=== PATIENT | female | born 1940 | race Caucasian/White ===

== ENCOUNTER 2017-05-24 20:25 | Observation (INO) | payer MEDICARE, MEDICAID ==
[2017-05-24 21:07] LABS: #Eosinphils 0.1 thou/uL (0.0-0.7); #Lymphocytes 1.4 thou/uL (1.20-3.40); #Monocytes 0.7 thou/uL (0.11-0.59); #Neutrophils 6.7 thou/uL (1.40-6.50); %Basophils 0.2 % (0.0-1.0); %Eosinophils 1.4 % (0.0-10.0); %Lymphocytes 15.4 % (21.0-51.0); %Monocytes 8.3 % (0.0-10.0); Mean Platelet Volume 8.2 fL (7.4-10.4); Red Blood Cell (RBC) Count 3.75 mill/uL (4.20-5.40); White Blood Cell (WBC) Count 8.9 thou/uL (4.8-10.8)
--- NOTE | 2017-05-24 21:14 | RAD ---
UPRIGHT PORTABLE CHEST ONE VIEW: 05/24/17 HISTORY: 76-year-old female with chest pain, primarily left sided when she moves. There is some deformity of the left anterior 7th rib which could represent a rib fracture, age indete rminate. There is no pneumothorax or pleural effusion. Atherosclerosis of the aorta. IMPRESSION: Minimal deformity of the left 7th anterior rib, evidence for a rib fracture, age indeterminate. No pn eumothorax, pleural effusion or other acute process in the chest. POS: [facility]
[2017-05-24 21:32] LABS: ALT (SGPT) 16 U/L (8-55); AST (SGOT) 29 U/L (5-34); Alkaline Phosphatase 158 U/L (40-150); Anion Gap 15 mmol/L (10-20); BUN (Urea Nitrogen) 22 mg/dL (9.8-20.1); Bilirubin, Total 0.2 mg/dL (0.2-1.2); Calc. Creatinine Clearance 0 mL/min (70-130); Calcium 8.7 mg/dL (7.8-10.44); Carbon Dioxide 20 mmol/L (23-31); Chloride 110 mmol/L (98-107); Estimated GFR-MDRD 28; Globulin 3.2 g/dL (2.4-3.5); Lipase 36 U/L (8-78); Magnesium 2.6 mg/dL (1.6-2.6); Protein, Total 6.8 g/dL (6.0-8.3)
[2017-05-24 21:33] LABS: Troponin I 0.026 ng/mL (< 0.028)
[2017-05-24 22:24] LABS: Bilirubin Negative (Negative); Blood, Urine Negative (Negative); Glucose, Urine (Dipstick) Negative (Negative); Ketone, Urine Negative (Negative); Nitrite Positive (Negative); Protein, Urine (Dipstick) Negative (Neg-Trace); Urobilinogen 0.2 mg/dL (0.2-1.0)
[2017-05-24 22:26] LABS: Bacteria/HPF 4+ HPF (None Seen); Hyaline Casts/LPF 0-3 HYALINE CAST LPF (0-3 Hyaline); RBC/HPF 0-3 HPF (0-3); Squamous Epithelial None Seen HPF (0-3)
[2017-05-24] MEDS ORDERED: Heparin 5,000 UNITS/ML VIAL ONE (23:45)
[2017-05-25 03:47] LABS: Troponin I 0.029 ng/mL (< 0.028)
[2017-05-25 04:51] VITALS: BMI 28.4
[2017-05-25 06:13] LABS: Troponin I 0.037 ng/mL (< 0.028)
[2017-05-25] MEDS ORDERED: Eucerin (Mineral Oil/Petrolatum,White) 30 gm Jar TOP PRN (06:51)
[2017-05-25] MEDS ORDERED: Ondansetron HCl/PF 4 MG/2 ML Vial IVP PRN (06:51)
[2017-05-25] MEDS ORDERED: Nitroglycerin 0.4 MG TAB (25 Tab Bottle) SL PRN (06:51)
[2017-05-25] MEDS ORDERED: Acetaminophen 325 MG TAB PO PRN (06:51)
[2017-05-25] MEDS ORDERED: Benzonatate 100 MG CAP PO PRN (06:51)
[2017-05-25] MEDS ORDERED: Senokot 8.6 MG TAB PO PRN (06:51)
[2017-05-25] MEDS ORDERED: Mag-Al 1200 mg/1200 mg/30 ML UDCUP PO PRN (06:51)
[2017-05-25] MEDS ORDERED: Loratadine 10 MG TAB PO PRN (06:51)
[2017-05-25] MEDS ORDERED: HYDROcodone/Acetaminophen 5/325 mg Tablet PO PRN (06:51)
[2017-05-25] MEDS ORDERED: Sodium Chloride 0.65% Nasal 44 ML BOT EA NARE PRN (06:51)
[2017-05-25] MEDS ORDERED: Ondansetron ODT 4 MG TAB PO PRN (06:51)
[2017-05-25] MEDS ORDERED: Milk Of Magnesia 30 ML UDCUP PO PRN (06:51)
[2017-05-25] MEDS ORDERED: Loperamide HCl 2 MG CAP PO PRN (06:51)
[2017-05-25] MEDS ORDERED: Zolpidem Tartrate 5 MG TAB PO PRN (06:51)
[2017-05-25] MEDS ORDERED: hydrALAZINE 20 MG/ML VIAL SLOW IVP PRN (06:51)
[2017-05-25] MEDS ORDERED: Chloraseptic Spray 180 ml Bottle PO PRN (06:51)
[2017-05-25] MEDS ORDERED: Diabetic Tussin 200 MG/10 ML UDCUP PO PRN (06:51)
[2017-05-25] MEDS ORDERED: Artificial Tears 18 DROP/0.9 ML EA EYE PRN (06:51)
[2017-05-25] MEDS ORDERED: Non-Formulary Item 1 EACH (Cran/Vitc/Mannose/Fos/Bromeln [Uti-Stat Liquid] 3,875 MG) PO SCH (09:00)
[2017-05-25] MEDS ORDERED: RIVASTIGMINE TD SCH (09:00)
[2017-05-25] MEDS: Amlodipine 5 MG TAB PO SCH (09:16)
[2017-05-25] MEDS: Saccharomyces boulardii 250 MG CAP PO SCH (09:17)
[2017-05-25] MEDS: Multivit, Therapeutic 1 TAB PO SCH (09:17)
[2017-05-25] MEDS: hydrALAZINE 25 MG TAB PO SCH ×3 (09:17→20:37)
[2017-05-25] MEDS: Folic Acid 1 MG TAB PO SCH (09:17)
[2017-05-25] MEDS: Bupropion 150 MG SR TAB PO SCH ×2 (09:17→20:37)
[2017-05-25] MEDS: Clopidogrel Bisulfate 75 MG TAB PO SCH (09:17)
[2017-05-25] MEDS: Aspirin 325 MG TAB PO SCH (09:17)
[2017-05-25] MEDS: Famotidine 20 MG TAB PO SCH (09:17)
[2017-05-25] MEDS: Amoxicillin/Potassium Clav 500 MG TAB PO SCH ×2 (09:20→20:37)
[2017-05-25] MEDS: Venlafaxine HCl XR 75 MG CAP PO SCH (09:20)
--- NOTE | 2017-05-25 10:44 | HP ---
PRIMARY CARE PHYSICIAN: Roman Branch D.O. REASON FOR ADMISSION: Chest pain. HISTORY OF PRESENT ILLNESS: A 76-year-old female who has history of mild coronary artery disease, pa roxysmal atrial fibrillation, hypertension, chronic kidney disease stage IV, aortic stenosis required balloon valvuloplasty in past, who lives at [facility]. From there, she was sent to the [facility] ency Room for chest pain. The patient reports that yesterday evening, there was republican at [facility]. She was there and she only ate some cookie and juice, but she was not feeling good and that i s why she came out of republican and went to her room. She was hurting in her left side of chest, which w as related with movement. She was hurting, especially whenever she was lifting her left upper extrem ity. She denies any associated nausea, vomiting, and diaphoresis. She denied any associated cough o r shortness of breath. She denied any relation of chest pain with food, respiration or activity. As patient's symptoms were not getting better and that is why patient called her son who brought her to emergency room for evaluation. In the emergency room, this patient's routine blood tests showed normal CBC, D-dimer was slightly aminta vated and that is why V/Q scan was ordered. Her BNP was slightly elevated. Her initial troponin was negative, but subsequently it was in indeterminant range. Her urinalysis is suggestive of UTI, but this patient does not have any UTI symptoms. This patient was evaluated in the emergency room and she was given Rocephin 1 gram, heparin 5000 unit s subcutaneous, and aspirin. This morning when I saw this patient, at that time she was not having a ny chest pain. She was on room air. She was not having any problem with her left upper extremity as well. PAST MEDICAL HISTORY: Chronic atrial fibrillation, Alzheimer's dementia, recurrent urinary tract inf ection, paroxysmal atrial fibrillation, history of aortic stenosis and required balloon aortic valvul otomy, osteoarthritis, history of TIA, and history of Parkinson's disease. PAST SURGICAL HISTORY: Knee replacement, tumor removed from spine, gastric bypass surgery, hysterect radha, cholecystectomy, cardiac catheterization with balloon aortic valvotomy. PAST PSYCHIATRIC HISTORY: Anxiety and depression. SOCIAL HISTORY: The patient lives at [facility]. No history of tobacco, alcohol or illicit dr ug abuse. FAMILY HISTORY: Mom by age of 82 years. Father when the patient was 1-year-old in road tr affic accident. One sister has a history of breast cancer. REVIEW OF SYSTEMS: The following complete review of systems was negative, unless otherwise mentioned in the HPI or below: Constitutional: Weight loss or gain, ability to conduct usual activities. Skin: Rash, itching. Eyes: Double vision, pain. ENT/Mouth: Nose bleeding, neck stiffness, pain, tenderness. Cardiovascular: Palpitations, dyspnea on exertion, orthopnea. Respiratory: Shortness of breath, wheezing, cough, hemoptysis, fever or night sweats. Gastrointestinal: Poor appetite, abdominal pain, heartburn, nausea, vomiting, constipation, or diarr hea. Genitourinary: Urgency, frequency, dysuria, nocturia. Musculoskeletal: Pain, swelling. Neurologic/Psychiatric: Anxiety, depression. Allergy/Immunologic: Skin rash, bleeding tendency. Please see my HPI for pertinent positives and negatives. All other review of systems reviewed and ne gative except as mentioned in the HPI. EMERGENCY ROOM COURSE: Patient is given Rocephin 1 gram, heparin 5000 units and aspirin 324 mg. ALLERGIES: No known drug allergies. CURRENT HOME MEDICATIONS: Amiodarone 200 mg p.o. daily, Exelon patch every day, folic acid 1 mg p.o. daily, multivitamin 1 tablet p.o. daily, Norvasc 5 mg p.o. daily, Pepcid 20 mg daily, Plavix 75 mg p .o. daily, Prilosec 20 mg p.o. daily, Remeron 7.5 mg at bedtime, trazodone 50 mg at bedtime, venlafax ine 75 mg daily, UTI-Stat 30 mL p.o. twice daily, Wellbutrin-SR 150 mg twice daily, and hydralazine 2 5 mg p.o. 3 times daily. PHYSICAL EXAMINATION: VITAL SIGNS: On arrival, blood pressure 166/77, pulse 83, respiratory rate 18, temperature 97.5, sat uration 94% on room air, and weight 77.1 kilograms. GENERAL: Patient is currently alert, oriented, no obvious acute distress. HEAD: Normocephalic, atraumatic. EYES: Pupils round, reactive to light. Extraocular muscles intact. ENT: Oropharynx within normal limits. Moist mucous membranes. No oral lesions. No pharyngeal eryt lia, no exudates. NECK: Supple, no JVD, no thyromegaly, no carotid bruit. LUNGS: Clear to auscultation without any rhonchi or rales. No accessory muscles of respiration in u se. No reproducible chest pain. CARDIAC: S1, S2 appears irregular. Systolic murmur present at aortic area. No gallop, no rub. ABDOMEN: Soft, bowel sounds present, nontender, and nondistended. No organomegaly, no mass, no supr apubic tenderness. BACK: Examination unremarkable, no CVA tenderness. EXTREMITIES: Upper extremity passive movements of all joints are normal. Lower extremities: No mikey ma. Good peripheral pulsation. No calf tenderness. SKIN: No skin rash. HEMATOLOGICAL SYSTEM: No lymphadenopathy. PSYCHIATRIC: Normal affect. NEUROLOGIC: Neurologically, nonfocal examination. IMAGING DATA AND SIGNIFICANT LABORATORY DATA: 1. EKG based on my review reveals normal sinus rhythm, first degree AV block, left ventricular hyper trophy. 2. Chest x-ray based on my review, minimal deformity of the left seventh anterior rib, evidence for rib fracture is indeterminant. 3. CBC: WBC 8.9, hemoglobin 11.6, platelets 363, D-dimer 0.74, sodium 140, potassium 4.8, chloride 110, carbon dioxide 20, BUN 22, creatinine 1.77, glucose 126, calcium 8.7, magnesium 2.6. 4. LFT: AST 29, ALT 7, AST 16, alkaline phosphatase 158, albumin 3.6, lipase 36, CK-MB 2.0, troponi n I 0.026. BNP 113.4. Subsequent troponin 0.029 and then 0.037. 5. Urinalysis suggestive of urinary tract infection. ASSESSMENT AND PLAN/IMPRESSION: 1. Chest pain, left sided, relation with movement of the left upper extremity. I am suspecting musc uloskeletal pain. This patient also has a left and 7th anterior rib fracture. Probably her pain may be related with that, but given her indeterminate troponin, we need to exclude cardiac etiology. Th is patient already had negative cardiac catheterization in 2016. Her D-dimer is slightly elevated, t kerri patient does not have any lower extremity edema or any calf tenderness. We will do V/Q scan to rule out thromboembolic disorder. Meanwhile, we will continue with aspirin 325 mg p.o. daily and Pl avix 75 mg p.o. daily. We will check a lipid profile tomorrow morning and we will also obtain echoca rdiography to assess ejection fraction and other structural abnormality. 2. Urinary tract infection. Patient is given Rocephin in the emergency room. Based on previous cul ture and sensitivity result, I will start Augmentin 500 mg twice daily based on renal dose and will f ollow up on urine culture result. We will also give her probiotics, Florastor 250 mg p.o. daily. 3. Elevated troponin as mentioned in problem #1. We are going to obtain echocardiography. We will continue aspirin and Plavix and we are also going to rule out thromboembolic disorder. 4. Elevated D-dimer. We will also rule out thromboembolic disorder with a V/Q scan. 5. Mild coronary artery disease. Patient is currently on full optimum medical therapy with aspirin, Plavix, and nitroglycerin on p.r.n. basis. We will check lipid profile and start statin therapy. 6. History of aortic stenosis, required balloon valvulotomy. Currently problem is stable. We are g oing to obtain echocardiography to assess current status. 7. Hypertension. We will continue amlodipine 5 mg p.o. daily, hydralazine 25 mg p.o. t.i.d. and nit ro patch 0.5 inch q.8 hourly. 8. Alzheimer's dementia. We will continue Exelon patch every day. 9. Anxiety and depression. We will continue Remeron 7.5 mg p.o. at bedtime, venlafaxine 225 mg p.o. daily along with Wellbutrin-SR 150 mg twice daily. 10. Chronic kidney disease stage 4. We will monitor renal function and avoid nephrotoxin agent. Me dication will be given as per renal dose. 11. Paroxysmal atrial fibrillation. We will continue amiodarone 200 mg p.o. daily along with aspiri n and Plavix for stroke prophylaxis. 12. Deep venous thrombosis prophylaxis not needed because we are expecting discharge in 24 hours. 13. Gastrointestinal prophylaxis, Pepcid 20 mg p.o. daily. CODE STATUS: The patient is FULL CODE. Patient's son is surrogate decision maker. Disposition plan within 24 hours, likely tomorrow morning after ruling out cardiac etiology.
[2017-05-25] MEDS: Nitroglycerin 2% Ointment 1 INCH/1 GM Packet TOP SCH ×2 (15:20→21:27)
--- NOTE | 2017-05-25 15:37 | NM ---
LUNG PERFUSION SCAN: 05/25/17 HISTORY: Chest pain. Elevated D-dimer. DOSE: 5 millicuries technetium 99m MAA. Multiple images including anterior, posterior and lateral as well as oblique images obtained after i njection of MAA for evaluation of lung perfusion scan. No evidence of areas of perfusion abnormality seen to suggest pulmonary emboli. IMPRESSION: Low probability scan for pulmonary emboli. No evidence of lung perfusion abnormality seen. POS: [facility]
[2017-05-25] MEDS ORDERED: traZODone HCl 50 MG TAB PO SCH (21:00)
[2017-05-25] MEDS ORDERED: Mirtazapine 15 MG TAB PO SCH (21:00)
[2017-05-26 04:38] LABS: #Eosinphils 0.2 thou/uL (0.0-0.7); #Lymphocytes 1.6 thou/uL (1.20-3.40); #Monocytes 0.7 thou/uL (0.11-0.59); #Neutrophils 4.5 thou/uL (1.40-6.50); %Basophils 0.6 % (0.0-1.0); %Eosinophils 3.3 % (0.0-10.0); %Monocytes 9.8 % (0.0-10.0); Hematocrit 36.9 % (36.0-47.0); Mean Platelet Volume 8.3 fL (7.4-10.4); Red Blood Cell (RBC) Count 3.75 mill/uL (4.20-5.40); White Blood Cell (WBC) Count 7.1 thou/uL (4.8-10.8)
[2017-05-26 05:18] LABS: Anion Gap 10 mmol/L (10-20); BUN (Urea Nitrogen) 22 mg/dL (9.8-20.1); Calc. Creatinine Clearance 36 mL/min (70-130); Carbon Dioxide 26 mmol/L (23-31); Chloride 111 mmol/L (98-107); Cholesterol 160 mg/dl (< 200 Desired); Estimated GFR-MDRD 30; LDL Cholesterol, Calculated 68 mg/dL
[2017-05-26] MEDS: Nitroglycerin 2% Ointment 1 INCH/1 GM Packet TOP SCH (06:04)
[2017-05-26] MEDS: Amlodipine 5 MG TAB PO SCH ×2 (10:20→11:44)
[2017-05-26] MEDS: Aspirin 325 MG TAB PO SCH ×2 (10:20→11:44)
[2017-05-26] MEDS: Amoxicillin/Potassium Clav 500 MG TAB PO SCH ×2 (10:20→11:44)
[2017-05-26] MEDS: Saccharomyces boulardii 250 MG CAP PO SCH ×2 (10:21→11:44)
[2017-05-26] MEDS: Bupropion 150 MG SR TAB PO SCH ×2 (10:21→11:45)
[2017-05-26] MEDS: hydrALAZINE 25 MG TAB PO SCH ×2 (10:21→11:44)
[2017-05-26] MEDS: Clopidogrel Bisulfate 75 MG TAB PO SCH ×2 (10:21→11:45)
[2017-05-26] MEDS: Multivit, Therapeutic 1 TAB PO SCH ×2 (10:21→11:45)
[2017-05-26] MEDS: Venlafaxine HCl XR 75 MG CAP PO SCH ×2 (10:21→11:44)
[2017-05-26] MEDS: Folic Acid 1 MG TAB PO SCH ×2 (10:21→11:45)
[2017-05-26] MEDS: Famotidine 20 MG TAB PO SCH ×2 (10:21→11:45)
--- NOTE | 2017-05-26 11:00 | DIS ---
PRIMARY CARE PHYSICIAN: Dr. Roman Branch. DATE OF ADMISSION: 05/24/2017 DATE OF DISCHARGE: 05/26/2017 DISCHARGE DISPOSITION: [facility]. PRIMARY DISCHARGE DIAGNOSES: 1. Left sided chest pain, likely musculoskeletal, ruled out acute coronary syndrome. 2. Urinary tract infection. 3. Elevated troponin, ruled out thromboembolic disorder. 4. Elevated D-dimer, ruled out thromboembolic disorder with VQ scan. 5. Moderate aortic stenosis. SECONDARY DISCHARGE DIAGNOSES: Paroxysmal atrial fibrillation, chronic kidney disease stage 4, anxie ty and depression, Alzheimer's dementia, hypertension, moderate aortic stenosis, mild coronary artery disease, recurrent UTI, and physical deconditioning. PRIMARY PROCEDURE/OPERATION: None. RADIOLOGICAL INVESTIGATION: Chest x-ray normal, which showed old seventh anterior rib fracture. Ech ocardiography showed moderate aortic stenosis. Ventilation perfusion scan negative for any PE. SIGNIFICANT LABORATORY DATA: WBC 7.1, hemoglobin 11.4, platelets 316. D-dimer 0.74. Sodium 143, cr eatinine 1.66, BUN 22, calcium 9.0, troponin 0.037, LDL 68, triglyceride 141, cholesterol 160, HDL 64 . Urinalysis suggestive of UTI. Urine culture grew E. coli. DISCHARGE MEDICATIONS: The patient will continue all her previous medications. New medication is Au gmentin 500 mg twice daily for 5 days and Florastor 250 mg p.o. daily for 5 days. Continue following medications: Amiodarone 200 mg p.o. daily, amlodipine 5 mg p.o. daily, Wellbutrin SR 150 mg p.o. b. i.d., Plavix 75 mg p.o. daily, UTI-Stat liquid b.i.d., Pepcid 20 mg p.o. daily, folic acid 1 mg p.o. daily, hydralazine 25 mg p.o. t.i.d., Remeron 7.5 mg p.o. at bedtime, multivitamin 1 tablet p.o. moon y, omeprazole 20 mg p.o. daily, Exelon patch transdermal daily, trazodone 50 mg p.o. at bedtime, and venlafaxine 225 mg p.o. daily. CONTRAINDICATIONS: None. CODE STATUS: FULL CODE. INPATIENT CONSULTANTS: None. ALLERGIES: No known drug allergy. DISCHARGE PLAN: Post hospital, the patient will follow up with primary care physician at [facility]. HOSPITAL COURSE: A 76-year-old female with the above-mentioned medical problem, who was sent from as sisted living facility for chest pain. The patient was having chest pain, which was musculoskeletal that was related with movement of the left upper extremity. In the emergency room, she had a negativ e EKG. Her D-dimer was elevated and that is why we did VQ scan and ruled out thromboembolic disorder . She had a slightly elevated troponin, which was indeterminant range, which was related with demand ischemia. She has moderate aortic stenosis. This patient has a urinary tract infection and that is why we started Augmentin for 5 more days and t he patient remained asymptomatic while in hospital. She did not have any further chest pain. Her te lemetry remained unremarkable. PHYSICAL EXAMINATION: The patient is seen and examined at bedside today. VITAL SIGNS: Currently, temperature 97.5, pulse 91, respiratory rate 16, saturation 96%, blood press ure 149/68, and weight 173 pounds. GENERAL: The patient is alert, oriented, in no acute distress. HEAD: Normocephalic, atraumatic. LUNGS: Clear to auscultation without any rhonchi or rales. CARDIAC: S1 and S2 appear regular. Murmur elicited at aortic area. No gallop, no rub. ABDOMEN: Soft. Bowel sounds present. EXTREMITIES: No edema. NEUROLOGIC: Nonfocal examination. Review of systems negative. New medication prescriptions sent to her pharmacy. The patient is medic ally stable for discharge today.
[2017-05-26 11:55] VITALS: BP 133/87; TEMP 97.4
== END 2017-05-26 14:34 ==
LOC: ERS 20:25 → 2SW 23:27
PROVIDERS: ADMIT Internal Medicine; ATTEND Internal Medicine
DX: R07.89 Other chest pain (principal); N39.0 Urinary tract infection, site not specified; R79.89 Other specified abnormal findings of blood chemistry; M19.90 Unspecified osteoarthritis, unspecified site; I35.0 Nonrheumatic aortic (valve) stenosis; I48.0 Paroxysmal atrial fibrillation; R53.81 Other malaise; I25.10 Atherosclerotic heart disease of native coronary artery without angina pectoris; I12.9 Hypertensive chronic kidney disease with stage 1 through stage 4 chronic kidney disease, or unspecified chronic kidney disease; N18.4 Chronic kidney disease, stage 4 (severe); G30.9 Alzheimer's disease, unspecified; F02.80 Dementia in other diseases classified elsewhere, unspecified severity, without behavioral disturbance, psychotic disturbance, mood disturbance, and anxiety; F41.9 Anxiety disorder, unspecified; F32.9 Major depressive disorder, single episode, unspecified; Z79.899 Other long term (current) drug therapy; Z98.84 Bariatric surgery status; Z90.49 Acquired absence of other specified parts of digestive tract; Z90.710 Acquired absence of both cervix and uterus; Z96.659 Presence of unspecified artificial knee joint; Z98.890 Other specified postprocedural states; Z86.73 Personal history of transient ischemic attack (TIA), and cerebral infarction without residual deficits
CPT/HCPCS: 71010; 78582; 80048; 80053; 80061; 82553; 83690; 83735; 83880; 84484 ×3; 85025 ×2; 85379; 87077; 87086; 87186; 93005; 93306; 96372; 96374; 99285; A9540; A9558; G0378; 36415; 81003; 81015; J0696; J1644

== ENCOUNTER 2017-06-14 19:50 | Emergency (ER) | payer MEDICARE, MEDICAID ==
[2017-06-14] MEDS ORDERED: Lidocaine 1% w/Epinephrine 1:100K 20 ML VIAL ONE (19:59)
[2017-06-14] MEDS ORDERED: Morphine 2 MG/ML SYRINGE ONE (20:20)
[2017-06-14] MEDS ORDERED: Bacitracin Zinc 1 Packet ONE (20:32)
--- NOTE | 2017-06-14 20:58 | CT ---
CT HEAD NONCONTRAST 06/14/17 INDICATION: Fall with head injury. Reference made to 08/03/16. FINDINGS: Moderate chronic microvascular ischemic disease is present without intracranial hemorrhage, mass effe ct or midline shift. Mild compensatory dilatation of ventricular system. There is a prominent sized l eft frontal scalp, and left periorbital hematoma. IMPRESSION: No acute intracranial abnormality. Prominent sized left frontal scalp and left periorbital soft tissue hematoma. Facial bones are incomp letely assessed. If there is concern in this regard, consider dedicated face CT. POS: [facility]
== END 2017-06-14 22:07 ==
LOC: ERS 19:50
DX: S01.112A Laceration without foreign body of left eyelid and periocular area, initial encounter (principal); S00.33XA Contusion of nose, initial encounter; I48.91 Unspecified atrial fibrillation; I10 Essential (primary) hypertension; M19.90 Unspecified osteoarthritis, unspecified site; F32.9 Major depressive disorder, single episode, unspecified; G20 Parkinson's disease; F02.80 Dementia in other diseases classified elsewhere, unspecified severity, without behavioral disturbance, psychotic disturbance, mood disturbance, and anxiety; Z86.73 Personal history of transient ischemic attack (TIA), and cerebral infarction without residual deficits; W01.10XA Fall on same level from slipping, tripping and stumbling with subsequent striking against unspecified object, initial encounter
CPT/HCPCS: 12013; 70450; 96372; J2001; J2270

== ENCOUNTER 2018-01-26 18:22 | Inpatient (IN) | payer MEDICARE, MEDICAID ==
[2018-01-26] MEDS ORDERED: Morphine 4 MG/ML VIAL ONE (19:32)
--- NOTE | 2018-01-26 20:47 | RAD ---
RIGHT KNEE: HISTORY: Fall with injury to right knee. FINDINGS: The patient has a right knee prosthesis in place. There is a transverse fracture involving the dista l femur, just above the condyles. There is ventral angulation of the distal fragment. Mild displace ment. IMPRESSION: Transverse fracture, distal femur, just above the femoral condyles, with angulation and mild displace ment of the distal fragment. POS: [facility]
--- NOTE | 2018-01-26 21:03 | RAD ---
PORTABLE CHEST: HISTORY: Injury to right lower extremity. Fall. COMPARISON: 05/24/2017 FINDINGS: There is a focal area of subtle density in the left apical region, which appears new from prior study . This could represent infiltrate. An underlying mass lesion is not excluded. The lung mccarty are otherwise clear. The heart and mediastinum are unremarkable. IMPRESSION: Questionable new opacity in the left upper lung field. Findings could represent inflammatory infiltr ate. Recommend followup. CODE T POS: [facility]
--- NOTE | 2018-01-26 21:04 | RAD ---
RIGHT FEMUR TWO VIEWS: HISTORY: Fall with injury to right lower extremity. FINDINGS: There is a transverse displaced and angulated fracture involving the distal femur, just above the con dyles. A knee prosthesis is in place, and the prosthetic components remain in alignment. The distal fragment shows ventral displacement and angulation. Mid and proximal femur are unremarkable with mild degenerative change at the hip. IMPRESSION: Transverse displaced and angulated fracture, distal right femur. POS: [facility]
[2018-01-26 21:23] LABS: #Eosinphils 0.1 thou/uL (0.0-0.7); #Monocytes 0.9 thou/uL (0.11-0.59); #Neutrophils 14.7 thou/uL (1.40-6.50); %Basophils 0.2 % (0.0-1.0); %Eosinophils 0.5 % (0.0-10.0); %Lymphocytes 5.9 % (21.0-51.0); %Monocytes 5.2 % (0.0-10.0); %Neutrophils 88.4 % (42.0-75.0); Hemoglobin 12.8 g/dL (12.0-16.0); Mean Corpuscular HGB CONC 32.7 g/dL (32.0-36.0); Mean Corpuscular Hemoglobin 31.5 pg (27.0-31.0); Mean Corpuscular Volume 96.6 fL (78.0-98.0); Mean Platelet Volume 9.5 fL (7.4-10.4); Platelet Count 235 thou/uL (130-400); RBC Distribution Width 12.3 % (11.5-14.5); Red Blood Cell (RBC) Count 4.05 mill/uL (4.20-5.40); White Blood Cell (WBC) Count 16.7 thou/uL (4.8-10.8)
[2018-01-26] MEDS ORDERED: Labetalol HCl 100 MG/20 ML VIAL ONE (21:23)
[2018-01-26 21:25] LABS: INR-International Normal Ratio 1.1; PTT 26.5 SEC (22.9-36.1); Prothrombin Time 14.7 SEC (12.0-14.7)
[2018-01-26 21:33] LABS: ALT (SGPT) 23 U/L (8-55); AST (SGOT) 31 U/L (5-34); Albumin 3.6 g/dL (3.4-4.8); Alkaline Phosphatase 168 U/L (40-150); Anion Gap 14 mmol/L (10-20); BUN (Urea Nitrogen) 25 mg/dL (9.8-20.1); Bilirubin, Total 0.4 mg/dL (0.2-1.2); Calc. Creatinine Clearance 0 mL/min (70-130); Calcium 8.8 mg/dL (7.8-10.44); Carbon Dioxide 20 mmol/L (23-31); Chloride 109 mmol/L (98-107); Estimated GFR-MDRD 33; Globulin 3.1 g/dL (2.4-3.5); Glucose 126 mg/dL (83-110); Potassium 5.1 mmol/L (3.5-5.1); Protein, Total 6.7 g/dL (6.0-8.3); Sodium 138 mmol/L (136-145)
--- NOTE | 2018-01-26 23:17 | HP ---
DATE OF ADMISSION: 01/26/2018 REQUESTING PHYSICIAN: Musa Santamaria D.O. ATTENDING SURGEON: Jeremie Landaverde M.D. CONSULTATIONS: Orthopedics, Dr. Gee. HISTORY OF PRESENT ILLNESS: The patient is a 77-year-old woman who lives at [facility] who was receiving walking back to her bed when she lost her balance, slipped and fell landing on her righ t knee, she had immediate pain, was unable to ambulate, staff notified EMS. She was brought to the e mergency department and noted to have a right distal femur periprosthetic fracture. At which time, w e were asked to evaluate the patient for admission and obtain orthopedic consultation. The patient d enied any syncopal like events. Denies hitting her head or loss of consciousness. Her only complain t is right knee pain. ALLERGIES: None. CURRENT MEDICATIONS: Keflex, Pepcid, desvenlafaxine, Wellbutrin, Tylenol, Plavix, and Zofran. PAST MEDICAL HISTORY: Coronary artery disease, atrial fibrillation, hypertension, osteoarthritis, de mentia, Parkinson's disease, TIA, depression. PAST SURGICAL HISTORY: Gastric bypass surgery, hysterectomy, cholecystectomy, spine surgery to "lucille ve a tumor" and right knee replacement. SOCIAL HISTORY: The patient denies tobacco, alcohol, or drug use and again she currently resides at [facility]. FAMILY HISTORY: Coronary artery disease, hypertension. REVIEW OF SYSTEMS: A 10-point review of systems is negative as otherwise stated. PHYSICAL EXAMINATION: VITAL SIGNS: Blood pressure 167/76, heart rate 66, respirations 16, oxygen saturation 95% on room ai r, temperature is 98.7. GENERAL: The patient is resting comfortably in bed. She is awake, alert, and conversant. Sammy c orlando scale is 15. The patient's dementia appears to be mostly memory related because she definitely a ppears oriented to most events currently and responds appropriately. HEENT: Head is normocephalic, atraumatic. Eyes: Extraocular motion intact. PERRLA bilaterally. E ars are atraumatic without discharge. Nose is atraumatic without discharge. Oropharynx is clear. NECK: Nontender. Trachea is midline. No JVD. CHEST: Clear to auscultation with good inspiratory and expiratory effort. HEART: Regular rate and rhythm. ABDOMEN: Soft, flat, nontender with active bowel sounds. Pelvis is stable. EXTREMITIES: The right lower extremity shows marked tenderness and swelling to her knee area consist ent with her fracture. Distally, she is neurovascularly intact. Remainder of her extremities are al so neurovascularly intact. BACK: By history is nontender and atraumatic. LABORATORY FINDINGS: White blood cell count 16.7, hemoglobin 12.8, hematocrit 39.1, platelets 235. Sodium 138, potassium 5.1, chloride 109, CO2 of 20, BUN 25, creatinine 1.52, glucose 126, AST 31, ALT 23, alkaline phosphatase 168, total bilirubin 0.4, PT 15, INR 1.1, PTT 27. RADIOGRAPHIC REPORTS: AP chest shows a questionable new opacity in the left upper lung field finding s could represent inflammatory infiltrate. Four views of the right knee show a transverse fracture o f the distal femur just above the femoral condyles with angulation and mild displacement of the dista l fragment. Two views of the femur show the same distal right femur fracture above the prosthesis. ASSESSMENT: 1. Status post ground level fall. 2. Right distal femur fracture. 3. History of coronary artery disease. 4. History of hypertension. 5. History of Parkinson's. 6. History of Alzheimer's. 7. History of Plavix use. PLAN: Plan will be to admit the patient to the surgical floor. She will be made n.p.o. after midnig ht. She will have pain control, pulmonary toilet, gastritis, and mechanical VTE prophylaxis. The trini lazaro was evaluated by Dr. Gee in the emergency department and this case will be discussed with Helen Landaverde after this dictation. The plan currently is to take the patient to the operating room [facility].
[2018-01-27] MEDS ORDERED: Ondansetron ODT 4 MG TAB PO PRN (00:03)
[2018-01-27] MEDS ORDERED: Ondansetron HCl/PF 4 MG/2 ML Vial IVP PRN (00:03)
[2018-01-27] MEDS ORDERED: Dextrose 50% Abboject 50 ML SYRINGE SLOW IVP PRN (00:03)
[2018-01-27] MEDS ORDERED: Morphine 4 MG/ML VIAL SLOW IVP PRN (00:03)
[2018-01-27] MEDS ORDERED: Dextrose 5% in Water 1,000 ML IV PRN (00:03)
[2018-01-27] MEDS ORDERED: hydrALAZINE 20 MG/ML VIAL SLOW IVP PRN (00:03)
--- NOTE | 2018-01-27 00:03 | CON ---
DATE OF CONSULTATION: 01/26/2018 CHIEF COMPLAINT: Right knee pain. HISTORY OF PRESENT ILLNESS: Ms. Barroso is a 77-year-old female status post fall. The patient currently lives at [facility], has history of dementia. The patient is a household ambulator. She ambulates fine in room and does transfers , but is otherwise no walking long distances. The patient complains of 9-10 pain. The patient's son is at bedside. She has a right pain. She has recently been treated for UTI. PAST MEDICAL HISTORY: Includes coronary artery disease, aortic stenosis with history of valvotomy, hypertension, Alzheimer dementia, anxiety, depression, chronic kidney disease, paroxysmal atrial fibrillation, history of TIA. PAST SURGICAL HISTORY: Right total knee arthroplasty, tumor excision removed, gastric bypass, hysterectomy, cholecystectomy, and a cardiac catheterization, balloon aortic valvotomy. ALLERGIES: No known drug allergies. CURRENT MEDICATIONS: The patient's medication list includes Keflex, Pepcid, desvenlafaxine, Wellbutrin, Tylenol, Plavix, and Zofran. SOCIAL HISTORY: Nondrinker, nonsmoker. No tobacco. The patient's son is at bedside. She currently lives in [facility]. REVIEW OF SYSTEMS: Noncontributory. PHYSICAL EXAMINATION: VITAL SIGNS: Blood pressure 200/81, pulse 80, respiratory rate 18, pain 10/10, 96% on room air. GENERAL: Alert female resting in bed talking without complaints. Her son at the bedside. EXTREMITIES: Right lower extremity exam shows pain with internal external rotation flexed deformity, no open wounds. Anterior midline knee incision from a total knee, 2+ DP and PT pulses. The patient will flex and extend her toes. She has sensation grossly intact right lower extremity. LABORATORY AND X-RAY FINDINGS: X-rays of the right femur and right knee show a supracondylar periprosthetic distal femur fracture around what appears to be a Lora Triathlon total knee. IMPRESSION: 1. Right supracondylar periprosthetic femur fracture. 2. Alzheimer's dementia. 3. Household ambulator. 4. Paroxysmal atrial fibrillation, coronary artery disease, hypertension, transient ischemic attack. ASSESSMENT AND PLAN: The patient has a periprosthetic femur fracture, admitted by Trauma. The patient's repeat UA to look for possible UTI. The patient will await clearance in the morning. Plan for on-call to the OR. I discussed with the family the risks and benefits of surgery to include pain, scar, bleeding, infection, damage to vital structures, decreased range of motion or strength, blood clots, loss of life or limb. She understands the patient to continue to ambulate the need to stabilize the femur. Discussed with him and I would either perform a nail versus plate may have to further investigate the starting point of the nail under fluoroscopy versus placement of the plate will better assess tomorrow possibly in the OR. Discussed with the patient risks and benefits of operative fixation. They elect to proceed. The patient received preoperative antibiotics medical secretary receptionist. MANUEL
[2018-01-27] MEDS ORDERED: Ketorolac Tromethamine 30 MG/ML VIAL IVP SCH (00:15)
[2018-01-27] MEDS ORDERED: Acetaminophen 1,000 MG in Premix Bag 1 BAG IVPB SCH (00:15)
[2018-01-27] MEDS: Sodium Chloride 0.9% 1,000 ML IV SCH ×3 (00:44→21:45)
[2018-01-27 00:58] LABS: Hemoglobin 12.2 g/dL (12.0-16.0)
[2018-01-27 01:22] LABS: ALT (SGPT) 31 U/L (8-55); AST (SGOT) 39 U/L (5-34); Albumin 3.6 g/dL (3.4-4.8); Alkaline Phosphatase 170 U/L (40-150); Anion Gap 13 mmol/L (10-20); BUN (Urea Nitrogen) 27 mg/dL (9.8-20.1); Bilirubin, Total 0.4 mg/dL (0.2-1.2); Calc. Creatinine Clearance 0 mL/min (70-130); Carbon Dioxide 20 mmol/L (23-31); Chloride 109 mmol/L (98-107); Estimated GFR-MDRD 34; Globulin 2.6 g/dL (2.4-3.5); Glucose 180 mg/dL (83-110); Potassium 4.2 mmol/L (3.5-5.1); Protein, Total 6.2 g/dL (6.0-8.3); Sodium 138 mmol/L (136-145)
[2018-01-27 02:06] VITALS: BMI 26.5
[2018-01-27 05:50] LABS: #Lymphocytes 0.7 thou/uL (1.20-3.40); #Monocytes 0.9 thou/uL (0.11-0.59); #Neutrophils 6.2 thou/uL (1.40-6.50); %Basophils 0.2 % (0.0-1.0); %Eosinophils 0.2 % (0.0-10.0); %Lymphocytes 9.3 % (21.0-51.0); %Monocytes 11.2 % (0.0-10.0); %Neutrophils 79.2 % (42.0-75.0); Hemoglobin 11.9 g/dL (12.0-16.0); Mean Corpuscular HGB CONC 32.1 g/dL (32.0-36.0); Mean Corpuscular Hemoglobin 31.1 pg (27.0-31.0); Mean Corpuscular Volume 97.1 fL (78.0-98.0); Mean Platelet Volume 9.3 fL (7.4-10.4); Platelet Count 205 thou/uL (130-400); RBC Distribution Width 12.2 % (11.5-14.5); Red Blood Cell (RBC) Count 3.83 mill/uL (4.20-5.40); White Blood Cell (WBC) Count 7.8 thou/uL (4.8-10.8)
[2018-01-27] MEDS: Acetaminophen 1,000 MG in Premix Bag 1 BAG IVPB SCH ×3 (06:36→18:11)
[2018-01-27] MEDS: Cyclobenzaprine 10 MG TAB PO PRN (07:47)
[2018-01-27] MEDS ORDERED: CEFAZOLIN/Water 2 GM/20 ML SYRINGE SLOW IVP SCH (08:00)
--- NOTE | 2018-01-27 08:50 | CON ---
DATE OF CONSULTATION: 01/27/2018 REASON FOR CONSULTATION: Preoperative clearance and history of aortic stenosis, status post valvulop lasty. HISTORY OF PRESENT ILLNESS: Ms. Barroso is a very pleasant 77-year-old woman, who initially was seen a nd evaluated by Dr. Basim Smyth. She underwent valvuloplasty in 2016. Her aortic valve area was 0.8, post-valvuloplasty was 1.57. After discussing this with the son and patient, it appeared they were not interested in TAVR, but wan nancy relief of symptoms. Patient has not been seen or evaluated in our office since 2016. She recently states she fell after returning from the bathroom at 06:30 p.m. She states there was no syncope or presyncope. She does have intermittent dizziness upon standing. No chest pain or pressu re, shortness of breath, PND, or orthopnea present. PAST MEDICAL HISTORY: Severe aortic stenosis, status post valvuloplasty, hypertension, minimal CAD, underlying dementia. HOME MEDICATIONS: Include Plavix, Wellbutrin, aspirin, clonidine, hydrochlorothiazide, venlafaxine. ALLERGIES: None. FAMILY HISTORY: Negative for CAD. SOCIAL HISTORY: No current tobacco or alcohol use. REVIEW OF SYSTEMS: Ten-point review of systems is reviewed and as above, otherwise negative. PHYSICAL EXAMINATION: VITAL SIGNS: Blood pressure 183/83, pulse 70, temperature 97.8. GENERAL: Patient is a pleasant female who is in no acute distress. The patient appears her stated a ge. VITAL SIGNS: NEUROLOGIC: The patient is alert and oriented times 3 with no focal neurologic deficits. HEENT: Sclerae without icterus. Mouth has moist mucous membranes with normal pallor. NECK: No JVD. Carotid upstroke brisk. No bruits bilaterally. LUNGS: Clear to auscultation with unlabored respirations. BACK: No scoliosis or kyphosis. CARDIAC: Regular rate and rhythm with 2-3/6 systolic ejection murmur. Carotid upstroke appears bris k. ABDOMEN: Soft, nontender, nondistended. No peritoneal signs present. No hepatosplenomegaly. No ab normal striae. EXTREMITIES: 2+ femoral and 2+ dorsalis pedis pulses. No cyanosis, clubbing, or edema. SKIN: No gross abnormalities. PERTINENT LABORATORY DATA: Hemoglobin 11.9, white blood cell count 7.8, creatinine 1.48. EKG showed normal sinus rhythm with ST-T-wave changes suggesting LVH. IMPRESSION: 1. Dizziness, lightheadedness. 2. History of severe aortic stenosis, status post valvuloplasty. 3. Recent murmur. 4. Preoperative clearance. RECOMMENDATIONS: Ms. Barroso does have what appears to be an appropriate carotid upstroke. She does h ave a loud systolic ejection murmur. At this point, I recommend echo with Doppler. If she has had r ecurrent aortic stenosis, I discussed with the family she would be considered an increased risk for c omplications and we will discuss with Surgery about other options if present. If the benefits to ris k ratio are in her favor, I would, therefore, recommend proceeding with surgery. We will review her echo and discussed with Dr. Gee. No need for any further studies given that she had minimal sofiya nary disease in 2016.
[2018-01-27] MEDS ORDERED: CEFAZOLIN/Water 2 GM/20 ML SYRINGE ONE ×2 (11:32→12:05)
[2018-01-27] MEDS ORDERED: Dexamethasone 4 mg/ml Vial ONE (11:34)
[2018-01-27] MEDS ORDERED: Sodium Chloride 0.9% 100 ML ONE (12:05)
[2018-01-27] MEDS: Famotidine 20 MG TAB PO SCH (12:12)
--- NOTE | 2018-01-27 12:16 | PRG-2 ---
DATE OF SERVICE: 01/27/2018 RESIDENT: Dr. Fermin Arambula CONSULTS: Dr. Ronni Gee, Dr. Ubaldo Arzola, TRANG Thomson. SUBJECTIVE: This is a 77-year-old female with past medical history of coronary artery dise ase, atrial fibrillation, hypertension, transient ischemic attack, who presented to the ER post-groun d level fall. Currently, she is on the surgical floor. Consults; Dr. Arzola for Cardiology clearance for surgery. His recommendations were echo with Dop pler which is currently done and pending results. The patient is being taken back for a distal femur fracture repair. We will follow up post-surgery. OBJECTIVE: VITAL SIGNS: Temperature 97.8, pulse 70, respirations 16, pulse ox 98 on room air, blood pressure 18 3/83. GENERAL: The patient is a pleasant woman sitting up in bed in no acute distress. HEENT: Atraumatic, normocephalic. CARDIOVASCULAR: Regular rate and rhythm. ABDOMEN: Soft, nontender to palpation. Bowel sounds present. EXTREMITIES: 2+ pulses in all 4 extremities with no peripheral edema. LABORATORY DATA: WBC 7.8, hemoglobin 11.9, hematocrit 37.2, MCV 97.1, platelet count 205. Sodium 13 8, potassium 4.2, chloride 109, bicarbonate 20, BUN 27, creatinine 1.48, GFR 34, glucose 180. IMAGING: None to report today. ASSESSMENT: 1. Transverse displaced angular fracture of the distal right femur. 2. Alzheimer dementia. 3. Paroxysmal atrial fibrillation. 4. Coronary artery disease. 5. Hypertension. 6. Transient ischemic attack. PLAN: Pending cardiac clearance the patient is going to be taken back to the OR for repair of right distal femoral fracture. Pain control postop, monitoring current medical conditions.
[2018-01-27] MEDS ORDERED: Fentanyl 100 MCG/2 ML VIAL ONE (12:22)
[2018-01-27] MEDS ORDERED: Bupivacaine HCl 0.5%/Epinephrine 1:200,000/PF 30 ml Vial ONE (13:17)
[2018-01-27] MEDS ORDERED: Promethazine HCl 25 MG/ML VIAL IM PRN (15:07)
[2018-01-27] MEDS ORDERED: Promethazine HCl 25 MG/ML VIAL SLOW IVP PRN (15:07)
[2018-01-27] MEDS ORDERED: Ketorolac Tromethamine 30 MG/ML VIAL IVP PRN (15:07)
[2018-01-27] MEDS ORDERED: Meperidine HCl/PF 25 MG/ML VIAL SLOW IVP PRN (15:07)
[2018-01-27] MEDS ORDERED: Ondansetron HCl/PF 4 MG/2 ML Vial ONE (15:23)
[2018-01-27] MEDS ORDERED: Tranexamic Acid 1,000 MG in Sodium Chloride 0.9% 250 ML 250 ML IVPB SCH (16:07)
[2018-01-27 18:20] LABS: Hemoglobin 10.2 g/dL (12.0-16.0)
--- NOTE | 2018-01-27 18:46 | RAD ---
RIGHT FEMUR TWO VIEWS WITH INTRAOPERATIVE FLUOROSCOPY: HISTORY: Femur fracture. FINDINGS: Intraoperative fluoroscopy was provided for internal fixation of the right femur. Spot fluoroscopic images show a long isaura and knee replacement in good radiographic position. FLUOROSCOPY TIME: 196 seconds. POS: [facility]
[2018-01-27] MEDS: CEFAZOLIN/Water 2 GM/20 ML SYRINGE SLOW IVP SCH (21:42)
[2018-01-27] MEDS ORDERED: CEFAZOLIN 2 GM in Sodium Chloride 0.9% 100 ML IVPB SCH (22:00)
[2018-01-28] MEDS: Acetaminophen 1,000 MG in Premix Bag 1 BAG IVPB SCH ×3 (00:54→07:23)
[2018-01-28] MEDS: Cyclobenzaprine 10 MG TAB PO PRN ×3 (02:55→20:23)
--- NOTE | 2018-01-28 06:09 | PDOC.CTH ---
Cardiology Progress Note - Subjective doing well post op - Objective Vital Signs Temp Pulse Resp BP Pulse Ox 01/28/18 04:08 98.2 F 96 18 115/53 L 97 01/28/18 00:00 99.0 F 80 19 137/75 93 L 01/27/18 21:43 98.3 F 77 20 93 L 01/27/18 21:08 98.3 F 77 20 157/84 H 93 L Weight 154 lb 12.8 oz 01/26/18 01/27/18 01/28/18 06:59 06:59 06:59 Intake Total 2100 Output Total 975 Balance 1125 - Physical Examination General/Neuro: alert & oriented x3, NAD Neck: no JVD present Lungs: CTA, unlabored respirations Heart: other: Abdomen: NT/ND, soft Extremities: + femoral B - Telemetry Telemetry Rhythm: sr - Labs Result Diagrams: 01/27/18 18:10 01/27/18 00:44 - Assessment/Plan Moderate s/p balloon valvuloplasty s/p femur fracture s/p repair Doing well. No other recommendations fu with CV in 1-2 weeks
[2018-01-28] MEDS: CEFAZOLIN/Water 2 GM/20 ML SYRINGE SLOW IVP SCH ×2 (07:24→09:09)
[2018-01-28] MEDS: Famotidine 20 MG TAB PO SCH (08:34)
[2018-01-28] MEDS ORDERED: traMADol HCl 50 MG TAB PO PRN (08:41)
[2018-01-28] MEDS ORDERED: VENLAFAXINE HCL 225 MG PO SCH (09:00)
[2018-01-28] MEDS ORDERED: RIVASTIGMINE TD SCH (09:00)
--- NOTE | 2018-01-28 09:21 | OP ---
DATE OF PROCEDURE: 01/27/2018 PREOPERATIVE DIAGNOSIS: Right periprosthetic distal femur fracture. POSTOPERATIVE DIAGNOSIS: Right periprosthetic distal femur fracture. PROCEDURE PERFORMED: Intramedullary nailing, right distal femur fracture. STAFF: Ronni Gee M.D. HYDRAULIC PRESS IN OPERATOR: Luma Berry PA-C ANESTHESIA: Patient received general endotracheal intubation with a femoral single-shot femoral catheter. ESTIMATED BLOOD LOSS: 200 mL. TOURNIQUET TIME: None. IMPLANTS: 13 mm x 360 mm Synthes titanium retrograde femoral nail with a titanium end cap. A T1 spiral blade, 70 mm and two 5.0 locking screws, one 68 mm and one 32 mm. ANTIBIOTICS: Ancef 2 grams, TXA 1 gram. COMPLICATIONS: none. HISTORY OF PRESENT ILLNESS: Ms. Barroso is a 77-year-old female who presented with right distal femur periprosthetic femur fracture. The patient is a 77-year -old female that has history of bariatric surgery, multiple comorbidities as this history of previous total knee. The patient is a household ambulator, currently is in a fdc, and currently has a history of dementia. The patient also has cardiac history and has received clearance by Trauma and Cardiology on-call to the OR. I discussed with the family the risks and benefits of intramedullary nail to give dynamic for compression to help with slowed stability instead of a placing a plate, felt that given the patient's bone quality, I will prefer a load sharing device. I discussed risks, benefits of surgery to include pain, scar, bleeding, infection, damage to vital structures, decreased range of motion or strength, need further surgeries, nonunion, malunion, decreased ambulation, loss of life and the family and patient understood the risks and benefits, would like to proceed. PROCEDURE IN DETAIL: Timeout was performed designating the patient's right lower extremity as the operative site based on site, consents and markings. After completion of the timeout, right lower extremity was prepped and draped in sterile fashion. He had an incision down through skin, down to expose patient's medial parapatellar arthrotomy, the patient had very tenuous skin and soft tissues, likely from the history of bariatric surgery. The patient had a medial patellar arthrotomy to expose the distal femur. We then placed a guide pin under fluoroscopic guidance and an opening reamer for a 13 mm nail, passed our guidewir. We had a good reduction and given the patient's bone quality, I felt she had to take a 13 mm nail. We had reduced it on AP and lateral planes. We passed our nail in place. She became little hypotensive in the passage of the nail that was improved with epinephrine. She otherwise stabilized, had no complaints. The nail was passed under AP and lateral gutters from the right position, had a fixed position, had good apposition of the bone. I may have overridden the bone a little bit. We then placed a screw lateral medial drilling and placing first a little longer screw into place and was 16 mm screw. We controlled this, we then placed our blade 10. We then drilled reamed the cortex and passed our blade plate which we locked into the plate to help with stability. There was a bit of valgus, but I liked the overall alignment and was apposition in lateral radiographs, we then went proximally, made a skin incision with perfect circles drilled and filled with a bicortical 5.0 screw proximally. We then washed, the skin was very tenuous, so we felt only filling subcutaneous hold stitches. We just used horizontal mattress, nylon stitches, which will stay in for 3 weeks. We used to close the medial arthrotomy with #2 Vicryl, #2 Quill, #2-0 and #2 nylon as well as a medial incision to be washed clean and we then placed the patient in knee motion. The patient will be admitted. We will continue admission or trauma. She will be nonweightbearing. She will be transferred back to her fdc later this week. MANUEL
[2018-01-28] MEDS ORDERED: Rivastigmine 4.6mg/24 Hour PATCH TD SCH (09:30)
[2018-01-28] MEDS ORDERED: Rivastigmine 9.5mg/24 Hour PATCH TOP SCH (09:30)
[2018-01-28] MEDS: Venlafaxine HCl XR 75 MG CAP PO SCH (09:52)
[2018-01-28] MEDS: Clopidogrel Bisulfate 75 MG TAB PO SCH (09:52)
[2018-01-28] MEDS: Bupropion 150 MG SR TAB PO SCH ×2 (09:52→20:24)
[2018-01-28] MEDS: Acetaminophen 500 MG TAB PO SCH ×3 (09:52→20:25)
--- NOTE | 2018-01-28 10:48 | PRG-2 ---
DATE OF SERVICE: 01/28/2018 TEAM: Dr. Fabian Walsh, TRANG Thomson. CONSULTS: Dr. Ronni Gee, Dr. Ubaldo Arzola RESIDENT: Dr. Fermin Arambula SUBJECTIVE: This is a 77-year-old female, hospital day 2, POD 1, status post distal femur repair. T he patient states that she tolerated the procedure well and states that her pain has been controlled overnight. She denies any nausea, vomiting. States that she ate breakfast well. We will continue t o have PT, OT work with the patient and follow their recommendations. OBJECTIVE: VITAL SIGNS: Temperature 98.3, pulse 90, respirations 18, O2 sat 93% on room air, blood pressure 99/ 77. GENERAL: The patient is a pleasant woman sitting up in bed in no acute distress. HEENT: Atraumatic, normocephalic. CARDIOVASCULAR: Regular rate and rhythm with 3/6 systolic murmur, likely secondary to aortic stenosi s. CHEST: Lungs clear to auscultation bilaterally. ABDOMEN: Soft, nontender to palpation. Bowel sounds are present. EXTREMITIES: Pulses 2+ in all 4 extremities with sensation intact. Patient has nonpitting edema in right lower extremity. LABORATORY DATA: Preoperative hemoglobin and hematocrit were 11.9 and 37.2 respectively, postop was 10.2 and 30.6 respectively. IMAGING: TTE done on 01/27/2018 shows EF of 55-60%, severe mitral annular calcification present, mod erate aortic stenosis present, moderately thickened trileaflet aortic valve with decreased excursion. ASSESSMENT: 1. Transverse displaced angulated fracture of the distal right femur, status post open reduction int ernal fixation. 2. Moderate aortic stenosis. 3. Alzheimer dementia. 4. Paroxysmal atrial fibrillation. 5. Coronary artery disease. 6. Hypertension. 7. History of transient ischemic attacks. PLAN: The patient will be evaluated by physical therapy and occupational therapy, pain medication norris s been switched over to p.o. medications. DISPOSITION: Discharge in 1-2 days.
[2018-01-28] MEDS: traMADol HCl 50 MG TAB PO PRN (20:25)
[2018-01-28] MEDS ORDERED: BROMELN PO SCH (21:00)
[2018-01-28] MEDS ORDERED: MANNOSE PO SCH (21:00)
[2018-01-28] MEDS ORDERED: VITC PO SCH (21:00)
[2018-01-28] MEDS ORDERED: CRAN PO SCH (21:00)
[2018-01-28] MEDS ORDERED: FOS PO SCH (21:00)
[2018-01-29] MEDS: Acetaminophen 500 MG TAB PO SCH ×4 (04:12→20:04)
[2018-01-29] MEDS: Venlafaxine HCl XR 75 MG CAP PO SCH (09:06)
[2018-01-29] MEDS: Rivastigmine 4.6mg/24 Hour PATCH TD SCH (09:06)
[2018-01-29] MEDS: Rivastigmine 9.5mg/24 Hour PATCH TOP SCH (09:06)
[2018-01-29] MEDS: Famotidine 20 MG TAB PO SCH (09:07)
[2018-01-29] MEDS: Folic Acid 1 MG TAB PO SCH (09:07)
[2018-01-29] MEDS: Multivitamin W/ Minerals 1 TAB PO SCH (09:07)
[2018-01-29] MEDS: Bupropion 150 MG SR TAB PO SCH ×2 (09:07→20:03)
[2018-01-29] MEDS: Clopidogrel Bisulfate 75 MG TAB PO SCH (09:07)
[2018-01-29 11:21] LABS: Bilirubin Negative (Negative); Blood, Urine Trace (Negative); Clarity CLEAR (Clear); Glucose, Urine (Dipstick) Negative (Negative); Leukocyte Trace (Negative); Nitrite Negative (Negative); Protein, Urine (Dipstick) 30 mg/dL (Neg-Trace); Specific Gravity, Urine 1.015 (1.002-1.036)
[2018-01-29 11:24] LABS: Bacteria/HPF None Seen HPF (None Seen); Hyaline Casts/LPF 0-3 HYALINE CAST LPF (0-3 Hyaline); Pathc Cast-AUWi Flag 0.29 (0-2.49)
--- NOTE | 2018-01-29 12:44 | EKG ---
Test Reason : Blood Pressure : / mmHG Vent. Rate : 083 BPM Atrial Rate : 083 BPM P-R Int : 230 ms QRS Dur : 076 ms QT Int : 386 ms P-R-T Axes : 088 -06 017 degrees QTc Int : 453 ms Sinus rhythm with 1st degree A-V block Voltage criteria for left ventricular hypertrophy Abnormal ECG Confirmed by FABIÁN HUBER D.O. ([id number]), film or videotape editor CAYLA FINLEY ([id number]) on 01/29/2018 12:44:12 PM Referred By: Confirmed By:FABIÁN HUBER D.O.
[2018-01-30] MEDS: Acetaminophen 500 MG TAB PO SCH ×4 (03:29→21:08)
[2018-01-30] MEDS: traMADol HCl 50 MG TAB PO PRN ×2 (05:27→15:19)
--- NOTE | 2018-01-30 05:39 | DIS-2 ---
DATE OF ADMISSION: 01/26/2018 DATE OF DISCHARGE: 01/30/2018 ADMITTING DIAGNOSIS: Right distal femur fracture. DISCHARGE DIAGNOSES: Right distal femur fracture status post open reduction and internal fixation, history of hypertension, history of Parkinson's, history of Alzheimer's, history of transient ischemic attack. TEAM: Dr. Fabian Walsh; TRANG Thomson; Dr. Fermin Arambula. CONSULTS: 1. Dr. Rnoni Gee, Orthopedic Surgery. 2. Dr. Ubaldo Arzola, Cardiology. PROCEDURES: 1. X-ray of right knee showing transverse fracture, distal femur just above the femoral condyles with angulation and mild displacement of distal fragment. 2. Chest x-ray showing questionable opacities in the left upper lung field. 3. Right femur fracture showing transverse displaced and angulated fracture of the right femur. 4. Right femur, two views with intraoperative fluoroscopy. Intraoperative fluoroscopy was provided for internal fixation of right femur. Spot fluoroscopy imaging shows long isaura and knee replacement in good radiographic position. 5. Intramedullary nailing, right distal femur fracture. HISTORY OF PRESENT ILLNESS/HOSPITAL COURSE: Liz Barroso is a 77-year-old female who sustained a right distal femur fracture with a ground level fall. The patient denies head trauma at the time. During her hospital stay, the patient tolerated repair of her distal femur fracture as well as a medical management well. On one occasion, the patient had an episode of sundowning and was relieved with orientation. LABORATORY DATA: Lab at the time of admission, CBC: White blood cell count 16.7, hemoglobin 12.8, hematocrit 39.1, MCV 96.6, platelet count 235,000. Sodium 138, potassium 5.1, chloride 109, carbon dioxide 20, BUN 25, creatinine 1.52. White count trended down to 7.8, hemoglobin trended down to 10.2 postoperatively. No other significant changes in labs. CONDITION ON DISCHARGE: Stable. DISPOSITION: 1. Location: [facility]. 2. Diet: Heart healthy. 3. Activity: Orthopedic limitations of physical therapy. 4. Followup: Follow up with primary care physician in 1-2 weeks, continue regular physical therapy. DISCHARGE MEDICATIONS: 1. Tylenol 1000 mg q.6 hours scheduled. 2. Cyclobenzaprine 10 mg t.i.d. p.r.n. muscle spasms Dr. Walsh's saw this patient. We discussed the treatment plan. MANUEL
[2018-01-30 06:25] LABS: Anion Gap 13 mmol/L (10-20); BUN (Urea Nitrogen) 25 mg/dL (9.8-20.1); Calc. Creatinine Clearance 43 mL/min (70-130); Calcium 8.5 mg/dL (7.8-10.44); Carbon Dioxide 23 mmol/L (23-31); Chloride 109 mmol/L (98-107); Estimated GFR-MDRD 43; Glucose 100 mg/dL (83-110); Magnesium 1.7 mg/dL (1.6-2.6); Phosphorus 2.4 mg/dL (2.3-4.7); Potassium 3.8 mmol/L (3.5-5.1); Sodium 141 mmol/L (136-145)
[2018-01-30] MEDS: Bupropion 150 MG SR TAB PO SCH ×2 (08:57→21:08)
[2018-01-30] MEDS: Multivitamin W/ Minerals 1 TAB PO SCH (08:57)
[2018-01-30] MEDS: Clopidogrel Bisulfate 75 MG TAB PO SCH (08:57)
[2018-01-30] MEDS: Famotidine 20 MG TAB PO SCH (08:58)
[2018-01-30] MEDS: Folic Acid 1 MG TAB PO SCH (08:58)
[2018-01-30] MEDS: Venlafaxine HCl XR 75 MG CAP PO SCH (08:58)
[2018-01-30] MEDS: Rivastigmine 4.6mg/24 Hour PATCH TD SCH (08:59)
[2018-01-30] MEDS: Rivastigmine 9.5mg/24 Hour PATCH TOP SCH (08:59)
[2018-01-30] MEDS: Cyclobenzaprine 10 MG TAB PO PRN (10:49)
--- NOTE | 2018-01-30 13:52 | PRG ---
DATE OF SERVICE: 01/29/2018 TEAM: Dr. Fabian Walsh, Dr. Jason Barroso. CONSULTATIONS: Dr. Ronni Gee and Dr. Ubaldo Arzola. RESIDENT: Fermin Arambula DO SUBJECTIVE: This is a 77-year-old female, hospital day #3, postop day #2, status post distal femur repair. The patient states that she is tolerating the procedure well and states that her pain has been controlled overnight. She denies any nausea or vomiting. States that she ate breakfast well. Continues to have PT and, OT work with the patient and she has been following their recommendations. OBJECTIVE: VITAL SIGNS: Temperature 98.3, pulse 88, respirations 20, O2 sat 98 on room air , blood pressure 151/58. GENERAL: The patient is a pleasant woman sitting up in bed in no acute distress. HEENT: Atraumatic and normocephalic. CARDIOVASCULAR: Regular rate and rhythm with a 3/6 systolic murmur, likely secondary to aortic stenosis. PULMONARY: Clear to auscultation bilaterally. No wheezing. ABDOMEN: Soft, nontender to palpation, bowel sounds are present. EXTREMITIES: Pulses 2+ in all 4 extremities with sensation intact. Patient has no edema in either leg bilaterally. LABORATORY DATA: Urine appears positive for UTI, positive protein, trace blood , trace leukocyte esterase, urine white blood cells, squamous cell. No imaging to review today. ASSESSMENT: 1. Transverse displaced angulated fracture of the distal right femur, status post open reduction and internal fixation. 2. Moderate aortic stenosis. 3. Alzheimer's dementia. 4. Paroxysmal atrial fibrillation. 5. Coronary artery disease. 6. Hypertension. 7. History of transient ischemic attacks. PLAN: The patient will be evaluated by physical therapy and occupational therapy. Continue working with then, pain medications have been switched to p.o. medications. We will continue managing her pain. We were unable to discharge pt. today 2/[address] Walsh saw this patient, and we discussed their treatment and plan. MANUEL
[2018-01-31] MEDS: Acetaminophen 500 MG TAB PO SCH ×3 (03:30→08:37)
[2018-01-31] MEDS: traMADol HCl 50 MG TAB PO PRN (04:38)
[2018-01-31] MEDS: Clopidogrel Bisulfate 75 MG TAB PO SCH (08:38)
[2018-01-31] MEDS: Rivastigmine 9.5mg/24 Hour PATCH TOP SCH (08:38)
[2018-01-31] MEDS: Rivastigmine 4.6mg/24 Hour PATCH TD SCH (08:38)
[2018-01-31] MEDS: Folic Acid 1 MG TAB PO SCH (08:38)
[2018-01-31] MEDS: Famotidine 20 MG TAB PO SCH (08:38)
[2018-01-31] MEDS: Venlafaxine HCl XR 75 MG CAP PO SCH (08:38)
[2018-01-31] MEDS: Multivitamin W/ Minerals 1 TAB PO SCH (08:38)
[2018-01-31] MEDS: Bupropion 150 MG SR TAB PO SCH (08:38)
[2018-01-31] MEDS ORDERED: traMADol HCl 50 MG TAB PO PRN (08:50)
[2018-01-31 11:36] VITALS: BP 144/76; TEMP 97.8
--- NOTE | 2018-01-31 11:52 | PRG ---
DATE OF SERVICE: 01/31/2018 SUBJECTIVE: Liz is a 77-year-old white female, who is postoperative day 5 from an intramedullar y nail fixation of a right distal femur. She did relatively well. She has no complaints. OBJECTIVE: On exam, she is neurovascularly intact in the involved extremity. There is no strikethro ugh gladis. [place] are intact. ASSESSMENT: This is a 77-year-old female postoperative day #5 right distal femur periprosthetic frac ture with retrograde nail fixation. PLAN: Gladis out in 10-12 days. She will follow up with Dr. Gee. She is awaiting transfer to [facility]. We will see her on an as needed basis between now and her next scheduled appointment.
[2018-01-31] MEDS ORDERED: traMADol HCl 50 MG TAB PO SCH (12:00)
--- NOTE | 2018-02-01 14:39 | ADD-DIS ---
ADDENDUM: DATE OF DISCHARGE: 01/31/2018 Admission diagnosis and discharge diagnosis remained the same as do consultants and procedures. HOSPITAL COURSE: The patient's discharge was delayed secondary to insurance authorization. Initial date of discharge was planned for 01/29/2018; however, the patient was unable to be discharged second rosanne to requiring insurance authorization. She remained hemodynamically stable. Pain was controlled via p.o. analgesics. She was tolerating a general diet. She was stable for discharge on 01/31/2018 once insurance authorization was obtained. PHYSICAL EXAMINATION ON DISCHARGE: VITAL SIGNS: Temperature 97.8, pulse 86, respiration rate 18, O2 sat 93%-96% on room air, blood pres sure 125/77. GENERAL: Elderly appearing female, in no acute distress, resting in bed. PULMONARY: Normal work of breathing, symmetric rise. CARDIOVASCULAR: Regular rate and rhythm. GASTROINTESTINAL: Abdomen is soft, nontender, nondistended. MUSCULOSKELETAL: Moves all extremities x4. NEUROLOGIC: No focal deficit noted. DISCHARGE DISPOSITION: half-way/[facility]. DISCHARGE INSTRUCTIONS: Discharge instructions were provided to the patient and the accepting facili ty. She is nonweightbearing on the right lower extremity. She should keep her wound clean, dry, and intact. DISCHARGE MEDICATIONS: Discharge medications as documented in the electronic medical record a list o f which was provided to the accepting facility. She said resume her home medications. We have added scheduled Tylenol and Ultram as well as p.r.n. Flexeril to her medication regimen. FOLLOWUP APPOINTMENTS: The patient should follow up with her primary care provider as needed. She s hould follow up with Dr. Arzola in approximately [address] Gee in 7-10 days for wound ch susanna. She does not need to followup formally with Dr. Walsh, but may call our office with any questio ns. This is an addendum to the original discharge summary of the patient's hospitalization. For more inf ormation, please see electronic medical records.
== END 2018-01-31 14:10 | DRG 481 ==
LOC: ERS 18:22 → SJJU 23:14
PROVIDERS: ADMIT Surgery; ATTEND Surgery
PROC: 0QSB06Z Reposition Right Lower Femur with Intramedullary Internal Fixation Device, Open Approach (ICD-10-PCS; principal; 2018-01-27)
DX: S72.401A Unspecified fracture of lower end of right femur, initial encounter for closed fracture (principal); M97.01XA Periprosthetic fracture around internal prosthetic right hip joint, initial encounter; F05 Delirium due to known physiological condition; W19.XXXA Unspecified fall, initial encounter; Y92.129 Unspecified place in nursing home as the place of occurrence of the external cause; I25.10 Atherosclerotic heart disease of native coronary artery without angina pectoris; I10 Essential (primary) hypertension; M19.90 Unspecified osteoarthritis, unspecified site; G20 Parkinson's disease; F32.9 Major depressive disorder, single episode, unspecified; Z96.651 Presence of right artificial knee joint; I48.0 Paroxysmal atrial fibrillation; G30.9 Alzheimer's disease, unspecified; F02.80 Dementia in other diseases classified elsewhere, unspecified severity, without behavioral disturbance, psychotic disturbance, mood disturbance, and anxiety; F41.9 Anxiety disorder, unspecified; I35.0 Nonrheumatic aortic (valve) stenosis; Z79.82 Long term (current) use of aspirin; Z79.02 Long term (current) use of antithrombotics/antiplatelets; Z86.73 Personal history of transient ischemic attack (TIA), and cerebral infarction without residual deficits; Z98.84 Bariatric surgery status
CPT/HCPCS: 36415; 71045; 76001; 80048; 80053; 81001; 83735; 84100; 85025; 85610; 85730; 87077; 87086; 87186; 93005; 93306; 96374; 96375; 96376; C1713; C1769; G0390; G8978-GP-CM; G8979-GP-CK; G8987-GO-CK; G8988-GO-CI; J0131; J0360; J0690; J1100; J1885; J2270; J2405; J3010; J7050; Q0162

== ENCOUNTER 2018-03-01 07:02 | Emergency (ER) | payer MEDICARE, MEDICAID ==
--- NOTE | 2018-03-01 07:59 | CT ---
CT BRAIN WITHOUT CONTRAST: History: Trauma. Unwitnessed fall. FINDINGS: Comparison made with exam of 06-14-17. Changes of cortical atrophy and chronic small vessel ischemic disease and old lacunar infarctions in the basal ganglia are again seen. No evidence of acute infarct, hemorrhage, midline shift, or abnorma l extraaxial fluid collections are seen. The ventricular size is stable and the basilar cisterns queen nt. The bony calvarium is intact. The visualized paranasal sinuses and mastoid air cells are well aer ated. IMPRESSION: No CT evidence of acute intracranial process. POS: [facility]
== END 2018-03-01 08:47 | disposition home or self-care (01) ==
LOC: ERS 07:02
DX: S01.81XA Laceration without foreign body of other part of head, initial encounter (principal); S61.412A Laceration without foreign body of left hand, initial encounter; S51.011A Laceration without foreign body of right elbow, initial encounter; K21.9 Gastro-esophageal reflux disease without esophagitis; I48.91 Unspecified atrial fibrillation; I10 Essential (primary) hypertension; Z86.73 Personal history of transient ischemic attack (TIA), and cerebral infarction without residual deficits; G20 Parkinson's disease; F03.90 Unspecified dementia, unspecified severity, without behavioral disturbance, psychotic disturbance, mood disturbance, and anxiety; F32.9 Major depressive disorder, single episode, unspecified; Z79.899 Other long term (current) drug therapy; W01.0XXA Fall on same level from slipping, tripping and stumbling without subsequent striking against object, initial encounter
CPT/HCPCS: 12011; 70450

== ENCOUNTER 2018-04-15 13:57 | Observation (INO) | payer MEDICARE ==
[~2018-04-15 13:57] MED LIST: ISOVUE-370 76%-LOCM 1 ML ONE
[2018-04-15 14:31] LABS: #Basophils 0.1 thou/uL (0.0-0.2); #Eosinphils 0.2 thou/uL (0.0-0.7); #Monocytes 0.5 thou/uL (0.11-0.59); #Neutrophils 6.8 thou/uL (1.40-6.50); %Basophils 0.9 % (0.0-1.0); %Eosinophils 1.7 % (0.0-10.0); %Lymphocytes 20.5 % (21.0-51.0); %Monocytes 5.6 % (0.0-10.0); %Neutrophils 71.3 % (42.0-75.0); Hemoglobin 15.8 g/dL (12.0-16.0); Mean Corpuscular HGB CONC 30.7 g/dL (32.0-36.0); Mean Corpuscular Hemoglobin 30.6 pg (27.0-31.0); Mean Corpuscular Volume 99.8 fL (78.0-98.0); Mean Platelet Volume 9.5 fL (7.4-10.4); Platelet Count 311 thou/uL (130-400); RBC Distribution Width 14.3 % (11.5-14.5); Red Blood Cell (RBC) Count 5.16 mill/uL (4.20-5.40); White Blood Cell (WBC) Count 9.5 thou/uL (4.8-10.8)
[2018-04-15 14:37] LABS: PTT 27.4 SEC (22.9-36.1)
[2018-04-15 14:51] LABS: ALT (SGPT) 18 U/L (8-55); AST (SGOT) 27 U/L (5-34); Albumin 3.9 g/dL (3.4-4.8); Alkaline Phosphatase 202 U/L (40-150); Anion Gap 17 mmol/L (10-20); BUN (Urea Nitrogen) 25 mg/dL (9.8-20.1); Bilirubin, Total 0.5 mg/dL (0.2-1.2); CK (CPK) 38 U/L (29-168); Calc. Creatinine Clearance 0 mL/min (70-130); Carbon Dioxide 20 mmol/L (23-31); Chloride 106 mmol/L (98-107); Estimated GFR-MDRD 32; Globulin 3.2 g/dL (2.4-3.5); Glucose 165 mg/dL (83-110); Potassium 4.1 mmol/L (3.5-5.1); Protein, Total 7.1 g/dL (6.0-8.3); Sodium 139 mmol/L (136-145)
[2018-04-15 14:53] LABS: CKMB 2.6 ng/mL (0-6.6); Troponin I 0.028 ng/mL (< 0.028)
--- NOTE | 2018-04-15 14:57 | CT ---
CT BRAIN WITHOUT CONTRAST: Comparison: 03-01-18 History: Stroke alert. Altered mental status. Technique: Multiple contiguous axial images were obtained in a CT of the brain without contrast. FINDINGS: There are scattered hypodensities in the subcortical and periventricular white matter, likely seconda ry to small vessel ischemic disease. No large confluent infarction is seen. There is no evidence of h ydrocephalus, intracranial hemorrhage, or extraaxial fluid collection. The calvarium and overlying soft tissues are unremarkable. The visualized paranasal and mastoid air c ells are well aerated. IMPRESSION: No evidence of acute intracranial abnormality. Dr. Aden notified of findings at 2:21 p.m. on 04-03. POS: [facility]
--- NOTE | 2018-04-15 15:46 | CT ---
CT ANGIOGRAM OF THE [place] CT ANGIOGRAM OF THE NECK 04/15/18 HISTORY: Altered mental status. COMPARISON: None. TECHNIQUE: CT angiogram of the [place] and of the neck are performed in the axial plane. Three dimensio nal reformatted images are submitted for interpretation. FINDINGS: Postcontrast head CT demonstrates preservation of cortical vieira-white matter differentiation. Conflue nt white matter hypodensities likely due to chronic small vessel ischemic change. Remote lacunar inf arction involving the bilateral lentiform nuclei. Adequate aeration of the sinuses and mastoid air cells. Bilateral ocular lenses are appropriately located. Both globes are intact. Retrobulbar fat is preserv ed. Symmetric attenuation of the optic nerve and ocular rectus muscles. Nasopharynx and oral cavity a re unremarkable. Epiglottis has a normal caliber. Pre-epiglottic fat is preserved. 7 mm hypodensity in the right thyroid lobe. Symmetric attenuation of the sternocleidomastoid muscles. Submandibular glands are unremarkable. There is fatty replacement of the parotid glands. No evidence of lymphadenopathy by size criteria. Varying degrees of central canal stenosis and neural foraminal narrowing on the basis of degenerative change. Upper mediastinum is unremarkable. Minimal emphysematous changes in the visualized lung apic es. CT ANGIOGRAM: The visualized aortic arch has an appropriate enhancement and luminal diameter. Minimal atherosclerot ic disease. There is a common origin of the left carotid artery and the right innominate artery. RIGHT CAROTID: The right innominate artery has appropriate enhancement and luminal diameter. The right common caroti d artery, carotid bifurcation, and internal carotid have appropriate enhancement and luminal diameter . No significant stenosis based upon NASCET criteria. LEFT CAROTID: The left carotid artery origin has appropriate enhancement and luminal diameter. The left common hanna tid artery, carotid bifurcation and internal carotid artery have appropriate enhancement and luminal diameter. Bilateral subclavian arteries are patent. Bilateral cervical vertebral arteries are patent throughout their course in the neck. There is a small amount of calcified plaque at the origin of the right hair tebral artery. CT ANGIOGRAM OF THE HEAD: There is atherosclerosis without significant narrowing of both cavernous carotid and paraclinoid segm ents. ANTERIOR CIRCULATION: Symmetric enhancement and luminal diameter of the A1 and A2 segments. Symmetric enhancement and lumin al diameter of the M1 and proximal MCA branches. POSTERIOR CIRCULATION: Both PICA artery origins are unremarkable. Both vertebral arteries supply normal appearing basilar ar jocelyne. Bilateral P1 segments are unremarkable. IMPRESSION: 1. No significant stenosis or occlusion of the [place]. 2. No significant stenosis of the carotid arteries based upon NASCET criteria. 3. Indeterminate right thyroid lesion. 4. Chronic small vessel ischemic changes of the white matter. 5. Remote lacunar infarcts. 6. Results of the study discussed with Markie 2:38 p.m. on 04/15/18. Code CR POS: [facility]
--- NOTE | 2018-04-15 16:33 | PDOC.FPRHP ---
- History of Present Illness Chief Complaint: AMS History of Present Illness: this is a 77yo F with pmh of vascular dementia and reported recent UTI presenting from the US lab for evaluation of AMS. Pt was in the outapient US lab for renal US for reported evaluation of continued UTI despite a week of cipro and possible treatment with augmentin. During exam pt reportedly became non verbal though she was still responding to commands. Pt spontaneously returned to baseline mental status and was put in room for evaluation of her transient AMS. Pt has no complaints on interview and denies any current pain or problems including dysuria though her ability to provide hx is questionable. She only remembers feeling confused and "pain" during US. Son is power of print operator and reports recent UTI that was unsuccessfully treated with cipro and that they had plans to switch to augmentin though he is not aware if they have started that. ED Course: CBC, CMP, no meds administered - Allergies/Adverse Reactions Allergies Allergy/AdvReac Type Severity Reaction Status Date / Time No Known Allergies Allergy Verified 01/27/18 01:20 - Home Medications Medication Instructions Recorded Confirmed Type Folic Acid 1 mg PO DAILY #0 tablet 12/22/13 04/15/18 Rx BuPROPion SR [Wellbutrin SR] 150 mg PO BID 07/15/15 04/15/18 History Clopidogrel Bisulfate [Plavix] 75 mg PO DAILY #0 tab 08/17/15 04/15/18 Rx Cran/VitC/Mannose/Fos/Bromeln 30 ml PO BID 05/25/17 04/15/18 History [Uti-Stat Liquid] Famotidine 20 mg PO DAILY 05/25/17 04/15/18 History Multivitamin [Daily Multiple 1 each PO DAILY 05/25/17 04/15/18 History Vitamin] Rivastigmine 1 patch TD DAILY 05/25/17 04/15/18 History Hydrocortisone [Hydrocortisone 1 applic TOP BID PRN 01/27/18 04/15/18 History 2.5% Lotion] Loperamide HCl [Imodium A-D] 2 mg PO Q4HR PRN 01/27/18 04/15/18 History Ondansetron HCl [Zofran] 4 mg PO Q6HR PRN 01/27/18 04/15/18 History Venlafaxine HCl [Venlafaxine HCl 225 mg PO DAILY 01/27/18 04/15/18 History ER] guaiFENesin/Dextromethorphan 10 ml PO Q6H PRN 01/27/18 04/15/18 History [Robitussin DM] Acetaminophen [Tylenol Extra 1,000 mg PO Q6H #30 tab 01/29/18 04/15/18 Rx Strength] Cyclobenzaprine [Flexeril] 5 mg PO TIDPRN PRN #10 tab 01/29/18 04/15/18 Rx traMADol HCl [Ultram] 50 mg PO Q6H PRN tab 01/31/18 04/15/18 Rx traMADol HCl [Ultram] 50 mg PO Q6HR tab 01/31/18 04/15/18 Rx Aluminum & Magnesium Hydroxide 30 ml PO QID PRN 04/15/18 04/15/18 History [Maalox] Amlodipine Besylate [amLODIPine 5 mg PO DAILY 04/15/18 04/15/18 History Besylate] Olopatadine HCl [Pataday] 1 drop EA EYE DAILY 04/15/18 04/15/18 History - History PMHx: vascular Dementia, CAD, afib, htn, CKD4, aortic stenosis s/p valvuplasty PSHx: Knee replacement, spinal tumor resection, gastric bypass, hysterectomy, cholecystectomy, cardiac cath, femur surgery FHx: CVA, Parkinsons Social: denies etoh/tobacco/drugs - Review of Systems General: denies: fever/chills, fatigue Eyes: denies: eye pain, vision changes ENT: denies: nasal congestion Respiratory: denies: cough, congestion Cardiovascular: denies: chest pain, palpitation Gastrointestinal: denies: nausea, vomiting Genitourinary: denies: incontinence, dysuria Skin: denies: rashes, lesions Musculoskeletal: denies: pain, tenderness Neurological: reports: other (confusion per hpi). denies: syncope, seizure - Vital signs BP: [154/61] HR: [91] RR: [17] Tmax: [98] Pox: [96]% on [ra] Wt: [80kg] - Physical Exam Constitutional: NAD -Constitutional: alert and oriented to person and place HEENT: normocephalic and atraumatic, EOMI, grossly normal vision, grossly normal hearing, MMM Neck: trachea midline, no JVD Chest: no-tender to palpation Heart: RRR, other (grade 4/6 holosystolic murmur) Lungs: CTAB, no respiratory distress, no wheezing Abdomen: soft, non-tender, bowel sounds present Musculoskeletal: normal structure, normal tone Neurological: no focal deficit, CN II-XII intact, normal sensation Skin: no rash/lesions, good turgor Heme/Lymphatic: no purpura, no petechia Psychiatric: normal mood and affect, other (poor memory) FMR H&P: Results - Labs Result Diagrams: 04/15/18 14:13 04/15/18 14:13 Lab results: WBC 9.5 thou/uL (4.8-10.8) 04/15/18 14:13 Hgb 15.8 g/dL (12.0-16.0) 04/15/18 14:13 Hct 51.5 % (36.0-47.0) H 04/15/18 14:13 MCV 99.8 fL (78.0-98.0) H 04/15/18 14:13 Plt Count 311 thou/uL (130-400) 04/15/18 14:13 Neutrophils % 71.3 % (42.0-75.0) 04/15/18 14:13 Sodium 139 mmol/L (136-145) 04/15/18 14:13 Potassium 4.1 mmol/L (3.5-5.1) 04/15/18 14:13 Chloride 106 mmol/L (98-107) 04/15/18 14:13 Carbon Dioxide 20 mmol/L (23-31) L 04/15/18 14:13 BUN 25 mg/dL (9.8-20.1) H 04/15/18 14:13 Creatinine 1.55 mg/dL (0.6-1.1) H 04/15/18 14:13 Glucose 165 mg/dL (83-110) H 04/15/18 14:13 Calcium 10.0 mg/dL (7.8-10.44) 04/15/18 14:13 Total Bilirubin 0.5 mg/dL (0.2-1.2) 04/15/18 14:13 AST 27 U/L (5-34) 04/15/18 14:13 ALT 18 U/L (8-55) 04/15/18 14:13 Alkaline Phosphatase 202 U/L (40-150) H 04/15/18 14:13 Creatine Kinase 38 U/L (29-168) 04/15/18 14:13 CK-MB (CK-2) 2.6 ng/mL (0-6.6) 04/15/18 14:13 Serum Total Protein 7.1 g/dL (6.0-8.3) 04/15/18 14:13 Albumin 3.9 g/dL (3.4-4.8) 04/15/18 14:13 FMR H&P: A/P - Plan 77yo F with pmh of vascular dementia presenting for eval of AMS TIA vs. Stroke vs. Delirium A- Symptoms have resolved but pt has risk factor of Vascular dementia. CT brain and CTA head/neck are only significant for small vessel ischemic changes of white matter and lacunar infacts. P- ASA 325mg now - start ASA 81mg daily - NPO until eval for swallow - nuero checks q4hr - FLP in AM - PT/OT consult - will consider MRI tomorrow Hx of UTI A- Pt son does not know if recent UTI has been successfully treated or not. He believes she is supposed to be on Augmentin. Pt denies any sympoms of UTI. Per son's history pt was originally here for renal US for evaluation of urinary problems P- will get UA and UCx - f/u on renal US - will f/u with PCP to get more details of this issue Vascular Dementia - MD aware, son reported gradual decline over the last year though she has never been nonverbal as demonstrated in chief complaint. CAD -med rec/request records and home meds afib -med rec/request records and home meds htn -will allow for permissive htn for now. -prn labetolol for HTN urgency -med rec/request records and home meds CKD4 -med rec/request records and home meds aortic stenosis s/p valvuplasty -audible murmur on exam -will be careful to not volume overload pt Code: DNR, discussed with son- medical power of print operator. IVF: LR 80ml/hr, will decrease with passed swallow eval and demonstrated PO intake Dispo: observe overnight, length of stay pending MRI FMR H&P: Upper Level - Pertinent history Patient is a 77yo F with PMH of vascular dementia, pAfib, CKD4, aortic stenosis s/p valvuloplasty, and recent recurrent UTIs presented to ED from [facility] radiology. She was getting a renal u/s to evaluate recurrent UTIs when digital technician noticed a change in mentation and a short period of time of becoming non-verbal. This episode resolved shortly and at the time of my evaluation, son at bedside and reports at baseline mentation. He does report 2 week hx of decreased appetite, weight loss, and decreased energy. According to son, was on two different abx over the last two weeks, unsure of which ones. ROS: 12 pt ROS performed and positive for those mentioned above as well as urinary and bowel incontinence. - Pertinent findings VS: BP 154/61, P 91 PE: General: NAD, thin HEENT: temporal wasting, PERRL CV: 3/6 systolic murmur radiating to R carotid Lungs: CTAB Neuro: no focal deficits, strength 5/5 UE and LE, CN2-12 intact, sensation intact in all extremities Psych: AOx2 Labs: BUN/Cr: 25/1.55 Alk Phos: 202 Imaging: CThead/neck: remote lacunar infarct with chronic small vessel ischemic changes - Plan Date/Time: 04/15/18 1630 IAbigail, have evaluated this patient and agree with findings/plan as outlined by internal salesperson resident. Pertinent changes/additions are listed here. AMS 2/2 TIA vs CVA vs Acute Delirium- Patient with acute mental status change now resolved and at baseline with no focal deficits on exam. Hx of vascular dementia worsening over the past months per son. R/o infectious cause with UA and urine cx. Plan for CVA workup with remote lacunar infarct on CT. FLP, TSH , neuro checks, and MRI tomorrow. Will give ASA tonight. NPO pending speech eval. This could be all related to worsening dementia, new medication changes, or delirium. Request records from [facility]. Paroxysmal Afib- reportedly on home anticoagulation but pending med rec. Currently NSR. Will place on stroke with telemetry monitoring HTN- son reports recently off medication because of concern for orthostatic hypotension. Elevated on admission, will continue to follow and allow for permissive HTN for 24h. PRNs for BP > 220/110. CKD4- at baseline. Will give NS @ 80mls/hr for maintenance. Aortic Stenosis s/p Valvuloplasty- >1 year ago, family unsure who she follows with but reports follow up outpatient on regular basis. Recurrent UTIs- evaluate for current UTI and resume outpatient workup if negative. Consider urinary retention as cause. Elevated Alk Phos- elevated on prior admissions and rising. Could be acute phase reactant. Consider GGT to evaluate further. VTE Ppx: Lovenox, pending med rec for anticoagulation IVF: NS @ 80 Code Status: DNR Dispo: likely stay 1-2 days pending neuro workup Attending Addendum - Attending Addendum Date/Time: 04/15/18 4931 I personally evaluated the patient and discussed the management with Dr. Michael I agree with the History, Examination, Assessment and Plan documented above with any addition or exceptions noted below- 77 yo female with h/o vascular dementia, CAD, HTN, A-fib, aortic stenosis c/p valvuloplasty who presented for renal USG from OR. During exam pt reportedly became non verbal though she was still responding to commands. Pt spontaneously returned to baseline mental status and was put in room for evaluation of her transient AMS. Pt has no complaints on interview and denies any current pain or problems including dysuria though her ability to provide hx is questionable. She only remembers feeling confused and "pain" during US. Currently denies any complaints and unable to give any further details regarding episode. Patient also recently treated for UTI- initially on cipro then changed to augmentin. PMH/PSH/All/Meds reviewed and agree with resident's documentation. Afebrile BP 132/76 P92 RR 18 Exam repeated by me and agree with residnet's findings. Labs: WBC=9.5, H/H= 15.8/51.5, plt-311, Ef=365, K=4.1, Sh=292, CO2=20, BUN/Cr=25/1.55, Gluc= 165, AST/ALT=27/18, trop= 0.028=>0.040, CT brain/angio- chronic white matter changes , and small lacunar unfarcts. No stenosis in ne[place] of [place] or carotids. A/P: 1) Brief episode of altered MS- now back to baseline. Possibly secondary to UTI vs dementia vs TIA- continue to monitor on stroke. Bedside swallow passed. Continue ASA. 2) UTI- urine culture from [facility] with E. coli resistant to cipro and senstive to augmentin- will clarify withh NH whether patient has started oir completed course of augmentin. Consider repeat urine culture for CHOLO.
--- NOTE | 2018-04-15 17:40 | ULT ---
RENAL ULTRASOUND: 04/15/18 HISTORY: Altered mental status. COMPARISON: None. TECHNIQUE: Sagittal and transverse imaging of the kidneys is performed. FINDINGS: Limited evaluation due to patient condition. Limited evaluation of both renal cortices. Bilaterally, no hydronephrosis. Right and left renal cortical thinning. Right kidney measures 4.0 x 3.4 x 7.3 cm. left kidney measure s 4.5 x 4.3 x 6.6 cm. There is evidence of debris within the urinary bladder. Bladder volume is 96 mL. IMPRESSION: 1. Limited evaluation due to body habitus. Grossly, no hydronephrosis. 2. Debris in the lumen of the urinary bladder. POS: [facility]
[2018-04-15 18:11] LABS: Bilirubin Small (Negative); Blood, Urine Trace (Negative); Clarity CLOUDY (Clear); Glucose, Urine (Dipstick) Negative (Negative); Leukocyte Moderate (Negative); Nitrite Negative (Negative); Protein, Urine (Dipstick) 100 mg/dL (Neg-Trace); pH, Urine 7.5 (5.0-9.0)
[2018-04-15 18:12] LABS: Pathc Cast-AUWi Flag 2.32 (0-2.49); RBC/HPF 0-3 HPF (0-3)
[2018-04-15 18:13] LABS: Specific Gravity, Urine 1.047 (1.002-1.036)
[2018-04-15 18:14] LABS: Yeast-AUWi Flag 27.1 (0-25.0)
[2018-04-15 18:21] LABS: Bacteria/HPF 1+ HPF (None Seen); Hyaline Casts/LPF 0-3 HYALINE CAST LPF (0-3 Hyaline); Renal Epithelial None Seen HPF (0-3); Transitional Epithelial 0-3 HPF (0-3); Yeast-All Forms None Seen HPF (None Seen)
[2018-04-15] MEDS ORDERED: Ondansetron ODT 4 MG TAB SL PRN (18:44)
[2018-04-15] MEDS ORDERED: Ondansetron PF 4 MG/2 ML Vial IVP PRN (18:44)
[2018-04-15] MEDS ORDERED: Acetaminophen 325 MG TAB PO PRN (18:44)
[2018-04-15] MEDS ORDERED: Labetalol HCl 100 MG/20 ML VIAL SLOW IVP PRN (18:46)
[2018-04-15] MEDS ORDERED: Aspirin 325 MG TAB PO SCH (19:00)
[2018-04-15 19:12] VITALS: BMI 21.9
[2018-04-15] MEDS: Lactated Ringer's 1,000 ML IV SCH (22:28)
[2018-04-16 04:42] LABS: #Eosinphils 0.1 thou/uL (0.0-0.7); #Lymphocytes 1.9 thou/uL (1.20-3.40); #Monocytes 0.9 thou/uL (0.11-0.59); #Neutrophils 7.1 thou/uL (1.40-6.50); %Basophils 0.5 % (0.0-1.0); %Eosinophils 1.4 % (0.0-10.0); %Monocytes 9.2 % (0.0-10.0); %Neutrophils 69.9 % (42.0-75.0); Hemoglobin 13.3 g/dL (12.0-16.0); Mean Corpuscular HGB CONC 31.2 g/dL (32.0-36.0); Mean Corpuscular Volume 99.6 fL (78.0-98.0); Mean Platelet Volume 9.6 fL (7.4-10.4); Platelet Count 299 thou/uL (130-400); RBC Distribution Width 14.1 % (11.5-14.5); Red Blood Cell (RBC) Count 4.29 mill/uL (4.20-5.40); White Blood Cell (WBC) Count 10.1 thou/uL (4.8-10.8)
[2018-04-16 05:15] LABS: ALT (SGPT) 14 U/L (8-55); AST (SGOT) 20 U/L (5-34); Albumin 3.2 g/dL (3.4-4.8); Alkaline Phosphatase 159 U/L (40-150); Anion Gap 13 mmol/L (10-20); BUN (Urea Nitrogen) 24 mg/dL (9.8-20.1); Bilirubin, Total 0.4 mg/dL (0.2-1.2); Calc. Creatinine Clearance 29 mL/min (70-130); Carbon Dioxide 20 mmol/L (23-31); Chloride 107 mmol/L (98-107); Estimated GFR-MDRD 34; Globulin 2.5 g/dL (2.4-3.5); Glucose 96 mg/dL (83-110); Potassium 3.5 mmol/L (3.5-5.1); Protein, Total 5.7 g/dL (6.0-8.3); Sodium 136 mmol/L (136-145)
[2018-04-16 06:24] LABS: Cardiac Risk 2.5 (Less than 4.5)
[2018-04-16 08:18] LABS: Troponin I 0.032 ng/mL (< 0.028)
--- NOTE | 2018-04-16 08:44 | PDOC.FM ---
Addendum entered and electronically signed by Abigail Ibarra DO 04/16/18 12:59: Last echo was 01/[address] Ramires regularly. Will not repeat at this visit. Original Note: - Subjective Subjective: Patient is doing well this morning, she is making jokes and son at bedside reports acting her usual self. She does occasionally make odd comments indicative of her dementia such as this morning mentioning taking her kids to school. Otherwise she has no complaints this morning, denies CP, [place], n/v/d/c, and dysuria. No acute events overnight and telemetry documents NSR with sinus tach occasionally. - Objective MAR Reviewed: Yes Vital Signs & Weight: Vital Signs (12 hours) Temp Pulse Resp BP Pulse Ox 04/16/18 07:47 98.5 F 103 H 16 143/76 H 95 04/16/18 04:00 97.6 F 103 H 18 153/89 H 96 04/16/18 00:00 97.5 F L 100 18 163/87 H 98 Weight Weight 57.788 kg Result Diagrams: 04/16/18 03:33 04/16/18 03:33 <Abigail Ibarra - Last Filed: 04/16/18 08:39> - Objective Vital Signs & Weight: Vital Signs (12 hours) Temp Pulse Pulse Pulse Resp BP BP 04/16/18 15:07 98.5 F 97 16 04/16/18 11:26 98.2 F 100 18 04/16/18 10:38 91 90 149/74 H 156/99 H 04/16/18 07:47 98.5 F 103 H 16 BP Pulse Ox 04/16/18 15:07 133/71 95 04/16/18 11:26 150/82 H 96 04/16/18 10:38 04/16/18 07:47 143/76 H 95 Weight Weight 57.788 kg I&O: 04/15/18 04/16/18 04/17/18 06:59 06:59 06:59 Intake Total 880 Balance 880 Result Diagrams: 04/16/18 03:33 04/16/18 03:33 <Phil Sanches - Last Filed: 04/16/18 17:12> Phys Exam - Physical Examination Constitutional: NAD HEENT: moist MMs CN2-12 intact Neck: no JVD Respiratory: no wheezing, no rales, clear to auscultation bilateral Cardiovascular: RRR 3/6 systolic murmur Gastrointestinal: soft, non-tender possible bladder distension noted on exam trace edema b/l LE Neurological: non-focal, normal sensation, moves all 4 limbs strength 5/5 UE and LE Psychiatric: normal affect Deviation from normal: AOx2 <Abigail Ibarra - Last Filed: 04/16/18 08:39> Dx/Plan (1) Altered mental status Code(s): R41.82 - ALTERED MENTAL STATUS, UNSPECIFIED Status: Acute (2) Elevated troponin Code(s): R79.89 - OTHER SPECIFIED ABNORMAL FINDINGS OF BLOOD CHEMISTRY Status : Acute (3) Paroxysmal atrial fibrillation Code(s): I48.0 - PAROXYSMAL ATRIAL FIBRILLATION Status: Chronic (4) CKD (chronic kidney disease), stage IV Code(s): N18.4 - CHRONIC KIDNEY DISEASE, STAGE 4 (SEVERE) Status: Chronic (5) Dementia Code(s): F03.90 - UNSPECIFIED DEMENTIA WITHOUT BEHAVIORAL DISTURBANCE Status: Chronic Qualifiers: Dementia type: unspecified type (6) HTN (hypertension) Code(s): I10 - ESSENTIAL (PRIMARY) HYPERTENSION Status: Chronic Qualifiers: Hypertension type: essential hypertension Qualified Code(s): I10 - Essential (primary) hypertension (7) Moderate aortic stenosis Code(s): I35.0 - NONRHEUMATIC AORTIC (VALVE) STENOSIS Status: Chronic - Plan Plan: AMS 2/2 TIA vs CVA vs Delirium - CThead with remote lacunar infarct and chronic vessel ischemic changes, consider MRI - NIH scores wnl - Continue permissive HTN x24h - DDx includes infectious source but WBC wnl and UA, although dirty has previous cultures that appear chronically colonized vs contaminated, hold on abx at this time, asymptomatic - consider echo with hx of aortic stenosis, unsure of last echo date - FLP at goal but ASCVD risk 21%- not currently on statin, discuss with son - daily ASA pAfib - not currently on anticoagulation per chart review, discuss with MPOA, patient is a fall risk with multiple prior falls - no Afib overnight - consider echo if not recently done Recurrent UTI - consider urinary retention - bladder scan for post void residuals - Renal US with debris in the bladder but otherwise wnl - UA dirty, Ucx pending, will hold on Abx at this time Vascular Dementia - worsening over the last year per son - consider antihypertensive agents for optimum management but reported hypotensive episodes by son and concern for orthostatic hypotension Hx of aortic stenosis s/p aortic valvuloplasty - I believe this is why she is on plavix but unsure. Will continue for now - consider echo as above. Elevated Alk Phos - downtrending Elevated troponins - trend, no active chest pain DVT ppx: Lovenox IVF: SL Code Status: DNR Dispo: likely d/c today or tomorrow back to NH <Abigail Ibarra - Last Filed: 04/16/18 08:39> Attending Addendum - Attending Addendum Date/Time: 04/16/18 1707 I personally evaluated the patient and discussed the management with Dr. Ibarra. I agree with and repeated the History, Examination, Assessment and Plan documented above with any addition or exceptions noted below. Pt here for a spell of aphasia which resolved. She was reportedly asphasic and felt weak when she was surrounded by many people. She denies having any chest pain, shortness of breath, palpitations, or other symptoms. She says she was quite nervous/scared when this occurred as well. Her exam this morning is unremarkable except for her murmur. She has a long history of falls. We discussed her medications and risk of falls. The family declines anticoagulation and this decision was made because of her extensive falls and bruising when she used to be on them. Her troponin had a very mild elevation, and has had multiple times in the past, likely d/t demand + CKD. As she has no chest symptoms and I do not believe her moderate s/p ABV is responsible for her spell, we will hold on any cardiology consultation. I have recommended short term follow up. She had normal coronaries in 2016. Her MRI is negative for acute stroke. I have recommended a statin for secondary prevention. I do not believe she had a seizure as she was responsive during the episode and solely aphasic. A neurology follow up outpatient is recommended. <Phil Sanches - Last Filed: 04/16/18 17:12>
[2018-04-16] MEDS ORDERED: Clopidogrel Bisulfate 75 MG TAB PO SCH (09:00)
[2018-04-16] MEDS ORDERED: RIVASTIGMINE TD SCH (09:00)
[2018-04-16] MEDS ORDERED: Enoxaparin Sodium 30 MG/0.3 ML SYRINGE SC SCH (09:00)
[2018-04-16] MEDS ORDERED: Famotidine 20 MG TAB PO SCH (09:00)
[2018-04-16] MEDS ORDERED: Amlodipine 5 MG TAB PO SCH (09:00)
[2018-04-16] MEDS ORDERED: Bupropion 150 MG SR TAB PO SCH (09:00)
[2018-04-16] MEDS ORDERED: Aspirin 81 mg Enteric Coated Tablet PO SCH (09:00)
[2018-04-16] MEDS: Lactated Ringer's 1,000 ML IV SCH (12:05)
--- NOTE | 2018-04-16 12:58 | PDOC.EVN ---
Event Note - Event Note Event Note: During rounds had conversation with the family about anticoagulation with known paroxysmal Afib. Family reports anticoagulation was stopped for several large hematomas that had developed and known fall risk. Over the last two months has had at least two falls, one suffering a hip fracture and the other a black eye and a laceration to the forehead. Patient has a [id number] of 7 which equates to a 11.2% stroke risk per year, and a HASBLED of 4 which equates to high risk for major bleeding. Discussed with family and will continue to hold anticoagulation per family discussion with MPOA, son Shante.
--- NOTE | 2018-04-16 13:42 | MRI ---
MRI BRAIN WITHOUT CONTRAST: HISTORY: TIA. Altered mental status. CORRELATION: CT scan from the previous date. COMPARISON: MRI from 07/16/2015. FINDINGS: No restricted diffusion is seen. Multiple foci of T2 prolongation is seen in the periventricular whi te matter, consistent with chronic small vessel ischemic disease. Old lacunar infarcts are noted in the basal ganglia. No evidence of acute infarct, hemorrhage, midline shift, or abnormal extraaxial f luid collections is seen. The ventricular size is appropriate, and the basilar cisterns are patent. The visualized paranasal sinuses and mastoid air cells are well aerated. IMPRESSION: No evidence of acute intracranial process. POS: [facility]
[2018-04-16 20:00] VITALS: BP 148/81; TEMP 97.9
[2018-04-16] MEDS ORDERED: Ketotifen Fumarate 0.025% Ophth Soln 5 ml Bottle EA EYE SCH (21:00)
[2018-04-17] MEDS ORDERED: Venlafaxine HCl XR 75 MG CAP PO SCH (09:00)
--- NOTE | 2018-04-18 17:05 | EKG ---
Test Reason : STROKE Blood Pressure : / mmHG Vent. Rate : 088 BPM Atrial Rate : 088 BPM P-R Int : 216 ms QRS Dur : 076 ms QT Int : 390 ms P-R-T Axes : 064 001 033 degrees QTc Int : 471 ms Sinus rhythm with 1st degree A-V block Moderate voltage criteria for LVH, may be normal variant Borderline ECG Confirmed by EVELYN FINN ([id number]), publication editor CAYLA FINLEY ([id number]) on 04/18/2018 5:04:27 PM Referred By: Confirmed By:EVELYN FINN
== END 2018-04-16 19:42 ==
LOC: ERS 13:57 → INTOOBSV 16:46 → 2SE 16:46
PROVIDERS: ADMIT Family Medicine; ATTEND Family Medicine
DX: R41.82 Altered mental status, unspecified (principal); N39.0 Urinary tract infection, site not specified; F01.50 Vascular dementia, unspecified severity, without behavioral disturbance, psychotic disturbance, mood disturbance, and anxiety; I25.10 Atherosclerotic heart disease of native coronary artery without angina pectoris; I12.9 Hypertensive chronic kidney disease with stage 1 through stage 4 chronic kidney disease, or unspecified chronic kidney disease; N18.4 Chronic kidney disease, stage 4 (severe); I48.0 Paroxysmal atrial fibrillation; Z79.02 Long term (current) use of antithrombotics/antiplatelets; Z79.899 Other long term (current) drug therapy; Z66 Do not resuscitate; Z98.0 Intestinal bypass and anastomosis status
CPT/HCPCS: 51701; 51798; 70450; 70496; 70498; 70551; 76770; 80053 ×3; 80061; 82550; 82553; 82962; 84484 ×3; 85025 ×2; 85027; 85610; 85730; 87086; 93005; 96360; 96361 ×2; 96372; 97139 ×2; 99285; G0378 ×2; G8981; G8982; G8983; G8987; G8988; 36415; 36416; 81003; 81015; A4353; J1650

== ENCOUNTER 2018-04-29 09:42 | Emergency (ER) | payer MEDICARE ==
[2018-04-29 10:47] LABS: #Lymphocytes 1.2 thou/uL (1.20-3.40); #Monocytes 0.5 thou/uL (0.11-0.59); #Neutrophils 8.6 thou/uL (1.40-6.50); %Basophils 0.1 % (0.0-1.0); %Eosinophils 0.4 % (0.0-10.0); %Lymphocytes 11.3 % (21.0-51.0); %Monocytes 4.7 % (0.0-10.0); %Neutrophils 83.5 % (42.0-75.0); Hemoglobin 16.4 g/dL (12.0-16.0); Mean Corpuscular HGB CONC 31.5 g/dL (32.0-36.0); Mean Corpuscular Hemoglobin 30.7 pg (27.0-31.0); Mean Corpuscular Volume 97.6 fL (78.0-98.0); Mean Platelet Volume 10.1 fL (7.4-10.4); Platelet Count 349 thou/uL (130-400); RBC Distribution Width 14.6 % (11.5-14.5); Red Blood Cell (RBC) Count 5.34 mill/uL (4.20-5.40); White Blood Cell (WBC) Count 10.4 thou/uL (4.8-10.8)
[2018-04-29 11:11] LABS: CKMB 5.3 ng/mL (0-6.6); Troponin I 0.057 ng/mL (< 0.028)
--- NOTE | 2018-04-29 11:46 | CT ---
CT HEAD NONCONTRAST: INDICATIONS: Confusion. FINDINGS: There is moderate chronic microvascular ischemic disease with superimposed, remote appearing cavitary lacunar infarctions. Mild parenchymal volume loss with compensatory dilatation of the ventricular s ystem is present. There is no intracranial hemorrhage, mass effect, or midline shift. IMPRESSION: 1. No acute intracranial hemorrhage or mass effect. 2. Multifocal lacunar infarction, superimposed upon moderate chronic microvascular ischemic disease. POS: [facility]
--- NOTE | 2018-04-29 11:49 | RAD ---
CHEST ONE VIEW: INDICATIONS: History of confusion. COMPARISON: Prior exam dated 01/26/2018. FINDINGS: The lungs are clear. The cardiomediastinal silhouette is within normal limits. No definite acute os seous abnormality is evident. The opacity seen within the left upper lobe on the comparison exam is no longer present. IMPRESSION: No acute cardiopulmonary abnormality. POS: [facility]
--- NOTE | 2018-04-29 12:12 | ULT ---
ULTRASOUND PELVIC LIMITED: Date: 04/29/18 HISTORY: Postmenopausal vaginal bleeding. COMPARISON: None. TECHNIQUE: Real-time Smyth scale and color evaluation of the pelvis was performed via transabdominal approach onl y. FINDINGS: There is what is expected to be a uterus measuring 5.2 x 4.3 x 4.4 cm with extensive calcifications o f the endometrium. The adnexa were not well visualized. IMPRESSION: Extensive endometrial calcifications, usually seen in a patient in postmenopausal atrophic state. POS: [facility]
[2018-04-29 12:40] LABS: Albumin 3.1 g/dL (3.4-4.8)
[2018-04-29 12:41] LABS: Calcium 9.3 mg/dL (7.8-10.44); Chloride 110 mmol/L (98-107); Potassium 4.6 mmol/L (3.5-5.1); Sodium 140 mmol/L (136-145)
[2018-04-29 12:42] LABS: Glucose 150 mg/dL (83-110)
[2018-04-29 12:43] LABS: Protein, Total 6.1 g/dL (6.0-8.3)
[2018-04-29 12:44] LABS: Anion Gap 18 mmol/L (10-20); Bilirubin, Total 0.5 mg/dL (0.2-1.2); Carbon Dioxide 17 mmol/L (23-31)
[2018-04-29 12:45] LABS: Alkaline Phosphatase 198 U/L (40-150); Calc. Creatinine Clearance 0 mL/min (70-130); Estimated GFR-MDRD 27
[2018-04-29 12:46] LABS: BUN (Urea Nitrogen) 34 mg/dL (9.8-20.1)
[2018-04-29 12:47] LABS: AST (SGOT) 24 U/L (5-34)
[2018-04-29 12:48] LABS: ALT (SGPT) 14 U/L (8-55)
[2018-04-29] MEDS ORDERED: hydrALAZINE 20 MG/ML VIAL ONE (13:09)
[2018-04-29 13:19] LABS: Bilirubin Small (Negative); Blood, Urine Large (Negative); Clarity CLOUDY (Clear); Glucose, Urine (Dipstick) Negative (Negative); Leukocyte Large (Negative); Nitrite Negative (Negative); Protein, Urine (Dipstick) 100 mg/dL (Neg-Trace); Specific Gravity, Urine 1.015 (1.002-1.036); pH, Urine 6.5 (5.0-9.0)
[2018-04-29 13:24] LABS: Hyaline Casts/LPF 4-6 HYALINE CAST LPF (0-3 Hyaline); Pathc Cast-AUWi Flag 1.31 (0-2.49); RBC/HPF GREATER THAN 50-TNTC HPF (0-3); Squamous Epithelial None Seen HPF (0-3)
[2018-04-29 13:27] LABS: Yeast-AUWi Flag 26.4 (0-25.0)
[2018-04-29 13:33] LABS: Bacteria/HPF Rare-Few HPF (None Seen); Yeast-All Forms 2+ HPF (None Seen)
[2018-04-29 13:39] LABS: Troponin I 0.049 ng/mL (< 0.028)
[2018-04-29] MEDS ORDERED: Sodium Chloride 0.9% 100 ML ONE (14:14)
[2018-04-29] MEDS ORDERED: cefTRIAXone\\ROCEPHIN 2 GM VIAL ONE (14:14)
== END 2018-04-29 15:13 | disposition home or self-care (01) ==
LOC: ERS 09:42
DX: N39.0 Urinary tract infection, site not specified (principal); K21.9 Gastro-esophageal reflux disease without esophagitis; I48.91 Unspecified atrial fibrillation; M19.90 Unspecified osteoarthritis, unspecified site; G20 Parkinson's disease; I35.0 Nonrheumatic aortic (valve) stenosis; F32.9 Major depressive disorder, single episode, unspecified; Z79.899 Other long term (current) drug therapy; Z79.891 Long term (current) use of opiate analgesic
CPT/HCPCS: 36415; 51701; 70450; 71045; 76857; 80053; 81003; 81015; 82553; 84484; 85025; 86850; 86900; 86901; 87086; 93005; 96361; 96365; 96375; A4353; J0360; J0696; J7050